=== PATIENT | female | born 1985 | race Caucasian/White ===

== ENCOUNTER 2018-08-04 10:43 | Inpatient (IN) | payer BC ==
[~2018-08-04] VITALS: Ht 162.6 cm; Wt 86.2 kg
[~2018-08-04 10:43] MED LIST: ALL DAY ALLERGY10 M1 PO; TRAZODONE HCL100 MG PO
[2018-08-07] MEDS ORDERED: XANAX0.5 MG PO (14:27)
--- NOTE | 2018-08-15 14:32 | NUR ---
PT RESTING CALMLY WITH FAMILY AT BS. OSIEL SHOWS APPROPRIATE CONCERN. PT REQUESTED PRAYER. WILL FOLLOW NEEDED
--- NOTE | 2018-08-15 15:35 | NUR ---
08/15/18 1535 Erika Torres 1525 PATIENT ARRIVES TO PACU AWAKE, BUT DOES NOT FOLLOW COMMANDS. RESP EVEN AND UNLABORED, ORAL AIRWAY IN PLACE. MASK AT 10 LITERS. 1529 ORAL AIRWAY REMOVED BY PATIENT. 1530 PATIENT AWAKE, BUT CONFUSED, STARTING TO FOLLOW COMMANDS. NODS HEAD YES TO PAIN, AND YES TO NEEDING PAIN MEDS.
--- NOTE | 2018-08-15 17:00 | NUR ---
PT ARRIVED FROM PACU. PT REPORTS 5/10 PAIN. FOAM GUN OPERATOR CALLED TO BEDSIDE TO CONFIRM THAT MORPHINE IRRIGATION EQUIPMENT MECHANIC CAN BE STARTED. VITALS TAKEN. MORPHINE IRRIGATION EQUIPMENT MECHANIC STARTED (SEE MAR), DOSE CONFIRMED BY EDWIN PEREZ. EDUCATION DONE WITH PT. PT VERBALIZES UNDERSTANDING OF HOW TO USE IRRIGATION EQUIPMENT MECHANIC AND THAT ONLY SHE SHOULD PUSH THE IRRIGATION EQUIPMENT MECHANIC BUTTON. ASSESSMENT DONE. DRESSING C/D/I AT THIS TIME. PT REPORTING ITCHING. ORDER FOR NUBAIN PLACED AND GIVEN. CONTINIOUS PULSE OX PLACED.O2 SATURATION AT 100% ON ROOM AIR. FOAM GUN OPERATOR TO BEDSIDE AND STATES TO PLACE PT ON 1L O2 CONTINIOUSLY. PT ORIENTED TO ROOM AND DEMONSTRATES UNDERSTANDING OF CALL LIGHT. MOTHER AT BEDSIDE. CALL LIGHT AND IRRIGATION EQUIPMENT MECHANIC BUTTON WITHIN REACH.
--- NOTE | 2018-08-15 18:11 | NUR ---
VITALS AND ASSESSMENT DUE. THIS RN AT BEDSIDE. PT REPORTS 5/10 PAIN. PT ENCORUAGED TO USE CALL CENTER NURSE FOR PAIN MEDICATION. PT DEMONSTRATES UNDERSTANDING. VITALS TAKEN. ASSESSEMENT DONE. DRESSING C/D/I AT THIS TIME. MATTHEW DRAINING SERIOUS ANGUNIOUS DRAINAGE. PT REMAINS ON 1L O2 PER YARD OPERATOR ORDER, PULSE OX READS 100% ON 1L O2. SCD'S IN PLACE. PT TOLERATING SIPS OF WATER. PT DEMONSTRATES USE OF INCENTIVE SPIROMETER REACHING 1950. MOTHER AT BEDSIDE. CALL LIGTH WITHIN REACH. NO ADDITONAL REQUESTS OR COMPLAINTS AT THIS TIME.
--- NOTE | 2018-08-15 18:34 | NUR ---
PT POST OP DAY ZERO FOR BONNIE RESECTION AND OVARY REMOVAL. NUTRITION PROGRAM INSTRUCTOR IN PLACE FOR 5/10 PAIN THIS SHIFT. PT USING NUTRITION PROGRAM INSTRUCTOR APPROPRAITLY. POST OP VITALS WNL. PT ON 1L O2 PER LEAD RECOVERER ORDERS. CPOX IN PLACE. DRESSING C/D/I THIS SHIFT. MATTHEW DRAIN SHOWING SERIOUS ANGUNEOUS FLUID. OTERO CATHETER IN PLACE DRAINING CLEAR YELLOW URINE. FAMILY AT BEDSIDE. PT HAS YET TO USE CALL LIGHT.
--- NOTE | 2018-08-15 18:46 | NUR ---
MED REC COMPLETE
--- NOTE | 2018-08-15 18:50 | NUR ---
VITALS AND ASSESSMENT DUE. THIS RN TO BEDSIDE. PT REPORST 7/10 PAIN IN LOWER BACK AND ABDOMEN. PT ENCOURAGED TO USE LAP CUTTER, 10MG OF MORPHINE DELIVERED SO FAR. WARM BLANKET PLACED BEHIND PTS BACK. ASSESSMENT DONE. DRESSING C/D/I AT THIS TIME. MATTHEW DRAIN SHOWS SMALL AMOUNT OF SERIOUSANGUNOUS DRAINAGE. VITALS TAKEN. PT REPOSITIONED IN BED. PT DEMONSTRATES USE OF INCENTIVE SPIROMETER RACHING 1750. PT RESTING WITH EYES CLOSED, RR = 12 BPM. BED RAILS UP. CALL LIGHT WITHIN REACH. MOTHER AT BEDSIDE.
--- NOTE | 2018-08-15 19:10 | NUR ---
KORY HAND OFF REPORT, PT REPORTS "NUMBNESS" IN HER RIGHT ARM. ASSESSMENT DONE. PT TOUCHED AT VARIOUS SPOTS ON ARM, WHILE EYES WERE CLOSED. PT ABLE TO IDENTIFY ALL PLACES TOUCHED. PT ENCOURATED TO MOVE ARM. MOVEMENT AND STRENGTH, WNL. RN PERITONEAL DIALYSIS CONSULTED TO SEE IF MORPHINE SPINAL AND SOLID WASTE LANDFILL TECHNICIAN COULD CAUSE EXTREMITY NUMBNESS. RN PERITONEAL DIALYSIS STATES TO CONTINUE TO MONITER. NO NEW ORERS AT THIS TIME. HAND OFF REPORT GIVEN TO EDWIN COLON.
--- NOTE | 2018-08-15 19:25 | NUR ---
RECIEVED BEDSIDE REPORT FROM REED PINEDA. PATIENT LAYING IN BED WITH FAMILY AT BEDSIDE. PATIENT REPORTS FEELING "SORE", DENIES WANTING PRN PAIN MEDICATION AT THIS TIME. SCDs IN PLACE. OTERO CATHETER. 1L VIA NC, CPOX, WNL. PATIENT REPORTS NUMBNESS IN RIGHT ARM. IV FLUIDS INFUSING PER JUL ORDER. COMPANY TRUCK DRIVER PUMP BUTTON IN REACH. DRESSING ON ABD IS CDI, NO NEW DRAINAGE NOTED.
--- NOTE | 2018-08-15 20:02 | NUR ---
ROUNDED ON PATIENT FOR POST OP VITALS. PATIENT REPORTS "8/10" PAIN IN BACK, PATIENT DENIES PRN PAIN MEDICATION AT THIS TIME, PT STATES THEY JUST PUSHED THEIR PROGRAM DIRECTOR PUMP. PATIENT REPORTS NUMBNESS IN RIGHT ARM, ASSESSED SENSATION OF RIGHT ARM, PATIENT REPORTS FEELING COOL SENSATION FROM ALCOHOL SWAP AND PALPATION ON RIGHT ARM WITH PATIENT EYES CLOSED. PATIENT REPORTS SLIGHT TINGLING IN BLE. PATIENT REPORTS "WET" SENSATION AROUND BUTTOCKS, CHECKED PATIENT TO HAVE DRY LINENS. DRESSING ON ABD IN CDI, NO NEW DRAINAGE PRESENT. 1L VIA NC, CPOX, WNL. CALL LIGHT WITHIN REACH. NO MORE NEEDS AT THIS TIME.
--- NOTE | 2018-08-15 21:46 | NUR ---
ASSESSMENT COMPLETE, REFER TO ASSESSMENT. MEDICATION ADMINSTERED PER MAR ORDER. PATIENT REPORTS HAVING NAUSEA THAT COMES AND GOES. COOL CLOTH PROVIDED FOR HEAD AND NECK. PATIENT REPORTS NUMBNESS IN RIGHT ARM, PT STATES NUMBESS IS STARTING TO GO AWAY. PT REPORTS TINGLING IN LEFT ARM. DRESSING ON ABD IS CDI, NO NEW DRAINAGE NOTED. PATIENT DENIES NUMBNESS AND TINGLING IN EXTREMITIES. MATTHEW DRAIN EMPTIED. INCENTIVE SPIROMETER AT BEDSIDE. SCDS IN PLACE. PATIENT REPORTS "5/10" PAIN IN BACK AND ABD, PATIENT DENIES WANTING PRN PAIN MEDICATION AND STATES PATIENT IS USING STEAM SERVICE INSPECTOR. STEAM SERVICE INSPECTOR BOTTOM WITHIN REACH OF PATIENT. IV FLUIDS INFUSING PER MAR ORDER. PATIENT DENIES SOB OR DIFFICULTY BREATHING. PATIENT IS ALERT AND ORIENTED, BUT STATES FEELING SLIGHTLY DROWSY. CALL LIGHT WITHIN REACH. NO MORE NEEDS AT THIS TIME.
--- NOTE | 2018-08-15 22:30 | NUR ---
PATIENT REPORTED NAUSEA. PRN NAUSEA MEDICATION PROVIDED PER JUL ORDER. COOL CLOTHS ON FOREHEAD AND EMESIS BAG PROVIDED. CALL LIGHT WITHIN REACH. NO MORE NEEDS AT THIS TIME.
--- NOTE | 2018-08-15 22:44 | NUR ---
ROUNDED ON PATIENT LAYING AWAKE IN BED. NEW SWATCH FOLDER SYRINGE PLACED IN SWATCH FOLDER PUMP DUE TO NOTIFICATION FROM SWATCH FOLDER PUMP THAT SWATCH FOLDER SYRINGE NEEDS TO BE REPLACED. SWATCH FOLDER SYRINGE WITH PAIN MEDICATION PER JUL ORDER PLACED IN SWATCH FOLDER PUMP AND DOUBLE VERIFIED WITH SECOND RN. RR IS 18. PATIENT REPORTS PAIN IN BACK AND ABD IS A "4/10". PATIENT ALERT AND ORIENTED. PATIENT DENIES NAUSEA. CALL LIGHT WITHIN REACH. NO MORE NEEDS AT THIS TIME.
--- NOTE | 2018-08-16 01:06 | NUR ---
rounded on patient resting in bed awake watching tv. patient rates pain as a "4/10", denies wanting prn pain medication. cpox, wnl. call light within reach. no more needs at this time.
--- NOTE | 2018-08-16 01:53 | NUR ---
ASSESSSMENT COMPLETE. PATIENT REPOSTS TINGLING IN ALL EXTREMITIES, PATIENT REPORTS NUMBNESS IN RIGHT ARM IS STARTING TO "GO AWAY". COOL BILATERAL EXTREMITIES, CAPILLARY REFILL LESS THAN 2 SECONDS. DRESSING ON ABDOMEN IS CDI, NO NEW DRAINAGE. MATTHEW DRAIN DRAINING, SEROSANGUANOUS FLUID, MATTHEW DRAIN EMPTIED. 1 L VIA NC, CPOX, WNL. PATIENT ALERT AND ORIENTED. RR IS 16. PATIENT REPORTS PAIN IS A "2/10", PATIENT DENIES WANTING PRN PAIN MEDICATION. SCDS IN PLACE. WARM BLANKET PROVIDED PER PATIENT REQUEST. PATIENT DENIES NAUSEA. PT DENIES CHEST PAIN, SOB OR DIFFICULTY BREATHING. CALL LIGHT WITHIN REACH. NO MORE NEEDS AT THIS TIME.
--- NOTE | 2018-08-16 05:21 | NUR ---
ASSESSMENT COMPLETE, REFER TO ASSESSMENT. RR: 18. PT ALERT AND ORIENTED. PT REPORTS PAIN IN ABDOMEN A "6/10" AND DESCRIBES PAIN "CRAMPING" AND "ACHY", PRN PAIN MEDICATION ADMINISTERED PER MAR ORDER. PATIENT STATES FLASHER ADJUSTER HAS BEEN HELPING. 1L VIA NC, CPOX WNL, NO SIGNS OF DISTRESS. PATIENT DENIES CHEST PAIN, SOB, OR DIFFICULTY BREATHING. PATIENT DENIES NAUSEA. PATIENT DENIES HAVING NUMBNESS AND TINGLING IN EXTREMITIES. PT REPORTS INCREASE IN PAIN WHEN PATIENT TAKES DEEP BREATHS AND USES INCENTIVE SPIROMETER, EDUCATION PROVIDED TO PATIENT TO BRACE ABD WITH PILLOW TO HELP WITH THIS, PATIENT EXPRESSED UNDERSTANDING. DRESSING ON ABD IS CDI, NO NEW DRAINAGE NOTED. MATTHEW DRAIN EMPTIED. WARM BLANKET PROVIDED. CALL LIGHT WITHIN REACH. NO MORE NEEDS AT THIS TIME.
--- NOTE | 2018-08-16 06:09 | NUR ---
PATIENT SLEPT ON AND OFF THROUGHOUT THE NIGHT. MATTHEW DRAIN, DRAINING WNL. SCDS. CPOX, WNL. 1L VIA NC, NO SIGNS OF DISTRESS. GERENTOLOGICAL PHYSIOTHERAPIST PUMP. PRN PAIN MEDICATION ADMINISTERED PER JUL ORDER. IV FLUIDS INFUSING PER JUL ORDER. INCENTIVE SPIROMETER AT BEDSIDE. DRESSING ON ABDOMEN IS CDI, NO NEW DRAINAGE. X1 PRN NAUSEA MEDICATION, NO COMPLAINTS OF NAUSEA SINCE. USES CALL LIGHT APPROPRIATELY. OTERO CATHETER. CLEAR LIQUID DIET. PATIENT REPORTS SENSATION IN EXTREMITIES AND DENIES NUMBNESS AND TINGLING.
--- NOTE | 2018-08-16 06:39 | NUR ---
ROUNDED ON PATIENT AWAKE WITH VISITOR AT BEDSIDE. PATIENT REPORTS "2/10" PAIN IN ABD WITH NO MOVEMENT. PATIENT REPORTS THAT PT'S STOMACH IS GROWLING, JELLO PROVIDED. CALL LIGHT WITHIN REACH. NO MORE NEEDS AT THIS TIME.
--- NOTE | 2018-08-16 07:22 | NUR ---
RECIEVED REPORT ON PT. SHE IS AWAKE WATCHING TV, NO NAUSEA AFTER EATING JELLO. REPORTS "GURGLING" IN STOMACH. MIDLINE DRSG CDI, MATTHEW PATENT WITH SCANT AMOUNT RED DRAINAGE. OTERO PATENT WITH LIGHT YELLOW URINE. REPORTS GOOD PAIN CONTROL. ENCOURAGED PT TO USE IS WHEN AWAKE. CALL LIGHT IN EASY REACH.
--- NOTE | 2018-08-16 09:43 | NUR ---
DRANK CUP OF BROTH OFF BREAKFAST TRAY, CURRENTLY SIPPING TEA, STOMACHE STILL "GURGLING". STATES SHE HAS PASSED TRACY, BEGINNING TO HAVE MORE ITCHING. WILL DISCUSS WITH DR AMATO. PT IN GOOD SPIRITS, MOTHER SITTING AT BEDSIDE VISITING.
--- NOTE | 2018-08-16 10:13 | NUR ---
SPOKE WITH DR LM ISSA; C/O ITCHING COMING BACK. RECIEVED ORDER TO GIVE BENEDRYL 12.5MG PO Q6P, TRYING TO AVOID OVERSEDATION. ENCOURAGING PT TO GET UP OOB. AGREES SHE WILL TRY FOR LUNCH.
--- NOTE | 2018-08-16 11:30 | NUR ---
PT PLANS ON RETURNING TO HER HOME WITH HER FAMILY. STATES SHE IS PLANNING ON RETURNING TO WORK ON 08/28/18
--- NOTE | 2018-08-16 11:45 | NUR ---
ONE PERSON ASSIST TO SIT UP ON SIDE OF BED, ORAL CARE DONE, STOOD USING PILLOW TO SPLINT ABD AND TOOK 5 STEPS TO RECLINER, POSITIONED FOR COMFORT. STATES SHE IS COMFORTABLE. CALL LIGHT IN EASY REACH. MOM SITTING AT BEDSIDE.
--- NOTE | 2018-08-16 13:00 | NUR ---
ONE PERSON ASSIST BACK TO BED, TOLERATED VERY WELL, ENCOURAGED TO DEEP BREATHE AND USE IS WHILE AWAKE, ABD DRSG IS CDI, MATTHEW SECURE. OTERO WITH LIGHT YELLOW URINE, SECURE.
--- NOTE | 2018-08-16 14:25 | NUR ---
PT RESTING IN BED, FAMILY AT BS. PT STATED THAT PAIN IS A 4-SHE FELT MANAGEABLE NOW. PT RATHER QUIET, EXTENDED A BLESSING, WILL FOLLOW NEEDED
--- NOTE | 2018-08-16 16:27 | NUR ---
PT ASKING FOR SOMETHING TO HELP WITH BACK PAIN, REPOSITIONED AND WARM PACK TO AREA WITH LITTLE RELIEF, TORADOL 30MG IV GIVEN.
--- NOTE | 2018-08-16 18:16 | NUR ---
PT HAD A GOOD DAY, UP TO RECLINER WITH ONE PERSON ASSIST, USING INCENTIVE SPIROMETER ALL DAY, ROOM AIR NOW, GOOD PAIN CONTROL WITH POULTRY HELPER, NO NAUSEA, HUNGRY. TORADOL WAS GIVEN WITH GOOD RELIEF OF BACK PAIN. OTERO WITH GOOD OUTPUT SECURE.LOTS OF FAMILY VISITING. MEPELEX DRSG CDI TO MIDLINE. MATTHEW SECURE.
--- NOTE | 2018-08-16 19:00 | NUR ---
CHARGE ROUNDING DONE. PATIENT RESTING IN BED. FAMILY IN ROOM. DENY CONCERNS AT THIS TIME.
--- NOTE | 2018-08-16 19:20 | NUR ---
RECEIVED REPORT FROM EDWIN CALDERÓN. pt EXPRESSED FRUSTRATION ABOUT BEING LEFT ALONE "FOR SO LONG". EDUCATED ON USING THE CALL LIGHT. FAMILY AT BEDSIDE. pt REPORTED FEELING ANXIOUS. MORPHINE SCALEHOUSE ATTENDANT CLEARED, INPUT IN COMPUTER. pt REPORTED ITCHING, EDWIN CALDERÓN ADMINISTERED BENADRYL. CALL LIGHT WITHIN REACH.
--- NOTE | 2018-08-16 21:40 | NUR ---
IN ROOM MULTIPLE TIMES. NEW IV FLUIDS HUNG. PREBOARDER CARTRIDGE CHANGED, VERIFIED WITH EDWIN WEST. MEDICATIONS GIVEN. COOL WASH CLOTHS PROVIDED TO HELP WITH ITCHING. FAMILY AT BEDSIDE. pt REQUESTED PRN ANXIETY MED (SEE MAR). IV HAD RED AREA NEAR INSERTION SITE. pt REPORTED THAT HAD BEEN THERE "A WHILE". IV FLUIDS STOPPED, REQUESTED CHARGE NURSE ASSESS FOR PLACEMENT OF NEW IV. pt REPORTED BEING "A HARD STICK, NO ONE GETS IT". ASSESSMENT DONE. CALL LIGHT WITHIN REACH.
--- NOTE | 2018-08-16 22:00 | NUR ---
CPOX BEEPING. ALARM CLEARED. VITALS DONE. MATTHEW DRAIN EMPTIED. pt REPORTED "STABBING PAIN" NEAR MATTHEW DRAIN, NOT TENDER WHEN PALPATED. ENCOURAGED TO AMBULATE OR SIT ON TOILET TO RELEIVE GAS PRESSURE. pt RELUCTANT AT THIS TIME. WILL CALL WHEN READY. FAMILY AT BEDSIDE. CALL LIGHT WITHIN REACH.
--- NOTE | 2018-08-16 23:40 | NUR ---
PATIENT COMPLAINING OF GAS PAIN. EDUCATION PROVIDED TO PATIENT ON IMPORTANCE OF AMBULATION FOR BOWEL MOTILITY. PATIENT ASSISTED UP TO STAND AT BEDSIDE. SHE FEELS WEAK BUT AGREES TO AMULATE IN HALLWAY. FAMILY ASSISTED PATIENT TO MAKE SMALL LAP AROUND BACK HALLWAY. PATIENT APPEARS SLOW AND STEADY. LINENS CHANGED ON PATIENT'S BED. PATIENT INTO THE BATHROOM, NO GAS BUT DID HAVE SMALL AMOUNT OF LOOSE STOOL. PATIENT REPORTS NOT FEELING THOUGH SHE WOULD HAVE A BM, STATING "IT JUST FELL OUT WHEN I WIPED". PATIENT NOT HAVING GAS CRAMPING PAIN AT THIS TIME. FEELS READY FOR BED. RETURNED TO BED AND POSITIONED FOR COMFORT. PATIENT REPORTS SORENESS IN HER NECK. WARM PACK PROVIDED. FAMILY REMAINS AT BEDSIDE.
--- NOTE | 2018-08-17 00:40 | NUR ---
CALL LIGHT ON. pt PASSED GAS AND LIQUID STOOL. LINENS CHANGED. pt UP TO TOILET AND BACK TO BED. FAMILY AT BEDSIDE. CALL LIGHT WITHIN REACH. NO FURTHER REQUESTS AT THIS TIME.
--- NOTE | 2018-08-17 03:01 | NUR ---
ROUNDED ON pt. RESTING WITH EYES CLOSED, RESPIRATIONS REGULAR. O2 SAT 92%. CALL LIGHT WITHIN REACH.
--- NOTE | 2018-08-17 05:16 | NUR ---
ROUNDED ON pt. RESTING WITH EYES CLOSED, RESPIRATIONS REGULAR, O2 SAT 94%. CALL LIGHT WITHIN REACH.
--- NOTE | 2018-08-17 05:18 | NUR ---
pt RESTED MOST OF SHIFT. ANXIOUS AT BEGINNING OF SHIFT. COMPLAINED OF GAS PAIN RESOLVED WITH AMBULATION. BM X1. PAIN CONTROLLED WITH MORPHINE FUNCTIONAL MENTAL DISABILITY TEACHER. OTERO CATH. VOIDING QS. NEW IV, IVF. TOLERATING CLEAR LIQUID DIET. MATTHEW DRAIN. MEPILEX TO MIDLINE INCISION CDI. USES CALL LIGHT APPROPRIATELY.
--- NOTE | 2018-08-17 06:39 | NUR ---
pt's INFORMED THIS RN THE PATIENT WAS IN PAIN. PRN MED GIVEN (SEE MAR). ASSESSMENT DONE. VITALS, I&O RECORDED. DRAIN EMPTIED. MOVED TO CHAIR. WARM BLANKETS PROVIDED. MOTHER AT BEDSIDE. CALL LIGHT WITHIN REACH.
--- NOTE | 2018-08-17 08:17 | NUR ---
PT UP TO RECLINER FOR BREAKFAST, CONT. TO TOLERATE CLEAR LIQUIDS WELL. PASSING FLATUS, REPORTS LOOSE STOOL DURING NIGHT.
--- NOTE | 2018-08-17 09:30 | NUR ---
SBA TO AMBULATE AROUND 1/2 LOOP AND BACK TO ROOM, INTO BATHROOM FOR SPONGE BATH, SMALL LIQUID GREENISH BROWN STOOL. PASSING FLATUS AND OCCASIONAL CRAMPING. DENIES NAUSEA. SITTING UP IN RECLINER WITH CUP OF TEA AND VISITING WITH FAMILY. OTERO SECURE WITH LIGHT YELLOW URINE, MATTHEW IS SECURE WITH SMALL AMOUNT RED SERROUS FLUID. ABD DRSG REMAINS CDI. CALL LIGHT IN EASY REACH AND ENCOURAGED PT IS RELUCTANT TO CALL FOR HELP.
--- NOTE | 2018-08-17 10:02 | NUR ---
PT CALLED AND STATES SHE DOES CONT. TO HAVE ITCHING MOSTLY FACE AND AROUND EYES. BENEDRYL 12.5MG PO GIVEN. WILL SPEAK TO DR AMATO.
--- NOTE | 2018-08-17 10:18 | NUR ---
SPOKE WITH DR AMATO ABOUT ITCHING AND HE STATES HE MAY DC COUNTER INTELLIGENCE AGENT AND BEGIN ORAL PAIN MEDICATION TODAY.
--- NOTE | 2018-08-17 13:00 | NUR ---
PT SAT UP THRU LUNCH AND AGAIN WENT FOR WALK AROUND NURSES STATION, TOLERATED WELL. ASSISTED TO BED WITH WARM BLANKET FOR A NAP. REPORT PAIN 4/10 WELL CONTROLLED WITH NURSE CLINICAL.NO NAUSEA. ACTIVE BT'S. GOOD URINE OUTPUT. IN ROOM. CALL LIGHT IN EASY REACH.
--- NOTE | 2018-08-17 16:35 | NUR ---
NOTED SOME SWELLING AT IV SITE IN RFA. IV RESTARTED BY ER-NURSE RANDA INTO RAC. TAPED SECURELY. PT TOLERATED WELL.
--- NOTE | 2018-08-17 17:11 | NUR ---
DR AMATO IN TO SEE PT. NEW ORDERS NOTED.
--- NOTE | 2018-08-17 18:00 | NUR ---
PATIENT SITTING UP IN BED. SISTER IN ROOM. PATIENT TAKING DINNER. VITAL SIGNS AND I&O DONE. CALL LIGHT WITHIN REACH. NO OTHER NEEDS AT THIS TIME
--- NOTE | 2018-08-17 18:34 | NUR ---
PT ATE BOWL OF POTATOES AND GRAVY AND TOLERATED WELL. NORCO GIVEN FOR PAIN 07/30. MONUMENT STONECUTTER DISCONTINUED. OTERO CATHETER DC'D AT THIS TIME WELL. PT IS IN GOOD SPIRITS VISITING WITH FRIENDS.
--- NOTE | 2018-08-17 19:55 | NUR ---
REPORT RECEIVED, PT RESTING IN BED, AOX4, FAMILY RESTING AT BEDSIDE, IV FLUIDS INFUSING PER EMAR WNL, DRESSING VISUALIZED, C/D/I, MATTHEW DRAIN NOTED, SMALL AMOUNT OF SEROSANGUINEOUS DRAINAGE, PT DENIES ANY NEEDS AT THIS TIME, CALL LIGHT WITHIN REACH, FALL PRECAUTIONS IN PLACE.
--- NOTE | 2018-08-17 21:27 | NUR ---
CHARGE NURSE ROUNDING NOTE:, WATCHING TV, NO REQUESTS. CALL LIGHT AND FLUIDS AT BEDSIDE
--- NOTE | 2018-08-17 21:32 | NUR ---
VITALS AND I&OS DONE AND CHARTED. HELPED PT TO THE BATHROOM AND BACK TO BED. CHANGED HER DAMIEN DUE TO A SMEAR OF BM ON IT. BEDSIDE TABLE AND CALL LIGHT IN REACH. PT ASKED IF SHE COULD HAVE HER PAIN PILLS? I INFORMED HER RN LYLA.
--- NOTE | 2018-08-17 21:44 | NUR ---
IN ROOM TO ADMIN EVENING MEDS, PT AOX4, PT C/O "FEELING ANTSY", PT ALSO STATES THAT HER PAIN IS CURRENTLY A 3/10, PRN ANXIETY MEDICATION GIVEN PER EMAR, PT DENIES FURTHER NEEDS AT THIS TIME, ASSESSMENT COMPLETE, LS CLEAR, BT ACTIVE, PT'S INCISIONS C/D/I, MATTHEW DRAIN DRAINING WNL, SEROSANGUINEOUS DRAINAGE NOTED IN PT'S MATTHEW DRAIN. NO NEEDS AT THIS TIME, FAMILY AT BEDSIDE, CALL LIGHT WITHIN REACH, FALL PRECAUTIONS IN PLACE.
--- NOTE | 2018-08-17 22:38 | NUR ---
PT C/O 10/30 PAIN RELATED TO ABDOMEN, PT REQUESTING PRN PAIN MEDICATION, PRN PAIN MEDICATION GIVEN PER EMAR, PT TOLERATED WELL, NO FURTHER REQUESTS AT THIS TIME, IV FLUIDS INFUSING PER EMAR WNL, CALL LIGHT WITHIN REACH, FALL PRECAUTIONS IN PLACE. FAMILY AT BEDSIDE.
--- NOTE | 2018-08-17 23:01 | NUR ---
HELPED PT TO THE BATHROOM AND BACK TO BED. BEDSIDE TABLE AND CALL LIGHT IN REACH. PT NEEDS NOTHING MORE AT THIS TIME.
--- NOTE | 2018-08-17 23:43 | NUR ---
PT RESTING IN BED, NO REQUESTS AT THIS TIME, CALL LIGHT WITHIN REACH, IV FLUIDS INFUSING PER EMAR WNL, CALL LIGHT WITHIN REACH. FAMILY REMAINS AT BEDSIDE.
--- NOTE | 2018-08-18 03:03 | NUR ---
PT C/O 11/29 PAIN IN ABDOMEN, PT GIVEN PRN PAIN MEDICATION PER EMAR, PT TOLERATED WELL, PT DENIES FURTHER NEEDS AT THIS TIME, CALL LIGHT WITHIN REACH, FALL PRECAUTIONS IN PLACE.
--- NOTE | 2018-08-18 04:50 | NUR ---
PT RESTING IN BED, EYES CLOSED, BREATHS EVEN, UNLABORED, NO REQUESTS AT THIS TIME, CALL LIGHT WITHIN REACH, IV FLUIDS INFUSING PER EMAR WNL.
--- NOTE | 2018-08-18 05:12 | NUR ---
PT AOX4, ANXIOUS AT TIMES BUT OVERALL APPROPRIATE, PT HAS RECEIVED PRN PAIN MEDICATION X2 THIS SHIFT, PT HAD ASKED AT BEGINNING OF SHIFT TO BE WOKEN UP Q4 FOR PRN PAIN MEDICATION, PT HAS BEEN ABLE TO SLEEP THIS SHIFT, IV FLUIDS INFUSING PER EMAR WNL, SCD'S ON, CALLS APPROPRIATELY, ON RA, VSS, ABDOMINAL INCISION C/D/I, MATTHEW DRAIN DRAINING WNL. 1 PERSON SBA
--- NOTE | 2018-08-18 06:15 | NUR ---
PT GIVEN PRN PAIN MEDICATION PER PT'S REQUEST PER EMAR, NO FURTHER REQUESTS AT THIS TIME, CALL LIGHT WITHIN REACH, IV FLUIDS INFUSING PER EMAR WNL, SCD'S ON.
--- NOTE | 2018-08-18 07:15 | NUR ---
BEDSIDE HANDOFF REPORT RECEIVED FROM CONCRETE PUDDLER RN. PT SITTING IN CHAIR, ASSISTED TO BATHROOM AND THEN TO BED. PT RATING PAIN 3/10. PT DENIES OTHER NEEDS AT THIS TIME.
--- NOTE | 2018-08-18 08:35 | NUR ---
PT RESTING IN BED. PT ON ROOM AIR, LUNG SOUNDS CLEAR. BOWEL TONES ACTIVE, DENIES NAUSEA, CONTINUES TO REPORT INCONTINENCE OF BOWEL AT TIMES, TOLERATING FULL LIQUID DIET. PT WITH MIDLINE MEPILEX AND OPSITE, CDI, MATTHEW DRAIN TO LLQ, COVERED WITH MEPILEX, CDI. CMS INTACT, WITHOUT EDEMA, SCDS TO LOWER LEGS. PT ASSISTED TO BATHROOM AND BACK TO BED, VOIDING QS. IV FLUIDS INFUSING D5LR AT 85 TO RAC IV.PT RATING PAIN 4/10 GIVEN 2 TAB NORCO. PT COMPLAINT OF ITCHING, PROVIDED WITH 12.5 MG BENADRYL. PT DENIES OTHER NEEDS AT THIS TIME. DISCUSSED PLAN OF CARE FOR THE DAY.
--- NOTE | 2018-08-18 09:12 | NUR ---
PATIENT RESTING IN BED. VITAL SIGNS AND I&O DONE. CALL LIGHT WITHIN REACH. NO OTHER NEEDS AT THIS TIME
--- NOTE | 2018-08-18 10:21 | NUR ---
HELPED PATIENT DO A BED BATH. AND SHAMPOOED AND COMBED HER HAIR. CHANGED HER BED LINENS. PATIENT AND I DID ONE LAP AROUND MED SURG.
--- NOTE | 2018-08-18 11:04 | NUR ---
PT ASSISTED TO BATHROOM AND BACK TO BED. PT COMPLAINT OF PAIN, RECENTLY RECEIVED MOTRIN, PLAN FOR NORCO WHEN AVAIALBLE. PT DENIES OTHER NEEDS AT THIS TIME.
--- NOTE | 2018-08-18 11:20 | NUR ---
PATIENT CALLS TO GET A WARM BLANKET. PATIEN RESTING IN BED. FAMILY IN ROOM. WARM BLANKET PROVIDED. CALL LIGHT WITHIN REACH. NO OTHER NEEDS AT THIS TIME
--- NOTE | 2018-08-18 13:03 | NUR ---
PATIENT RESTING IN BED. MOM IN ROOM. VITAL SIGNS AND I&O DONE. ICE WATER GIVEN. CALL LIGHT WITHIN REACH. NO OTHER NEEDS AT THIS TIME
--- NOTE | 2018-08-18 14:45 | NUR ---
PT REQUESTING TO USE BATHROOM, SBA. PT ASSISTED TO CHAIR. NO ACUTE CHANGES. MIDLINE INCISION DRESSING CDI, MATTHEW DRAIN PRESENT. PT DENIES OTHER NEEDS AT THIS TIME.
--- NOTE | 2018-08-18 15:45 | NUR ---
PT SITTING IN CHAIR. PT DENIES NEEDS AT THIS TIME.
--- NOTE | 2018-08-18 17:25 | NUR ---
PT SITTING IN CHAIR. UPDATED PT ON NEED FOR STOOL SAMPLE, EDUCATED ON C-DIFF AND CONTACT PRECAUTIONS. PT REQUESTING PAIN MEDICATION RATING PAIN 5/10 TO ABD. GIVEN 2 TABS NORCO. PT SALINE LOCKED PER ORDER. DISCUSSED SHOWER AFTER DINNER. PT DENIES OTHER NEEDS AT THIS TIME.
--- NOTE | 2018-08-18 17:30 | NUR ---
PATIENT SITTING UP IN CHAIR. FAMILY IN ROOM. VITAL SIGNS AND I&O DONE. PATIENT COMPLAINS ABOUT PAIN. RN NOTIFIED. CALL LIGHT WITHIN REACH. NO OTHER NEEDS AT THIS TIME
--- NOTE | 2018-08-18 17:40 | NUR ---
PT ON ROOM AIR, LUNG SOUNDS CLEAR. PT ADVANCED TO REGULAR DIET, DENIES NAUSEA. PT WITH LOOSE BM, C-DIFF STOOL SAMPLE NEEDED, IMODIUM STARTED. PAIN WELL CONTROLLED WITH NORCO 2 TAB AND MOTRIN. SALINE LOCKED. WALKED IN ALAS SEVERAL TIMES. MATTHEW DRAIN TO LLQ, MIDLINE INCISION DRESING CDI. SBA TO AMBULATE. VOIDING QS.
--- NOTE | 2018-08-18 19:29 | NUR ---
REPORT RECEIVED, PT RESTING IN BED, IV SL, SCD'S ON, PT HAS NOT YET HAD A BM, PT C/O A SORE BACK, HOT PACK GIVEN PER PT'S REQUEST, PT DENIES SIGNIFICANT PAIN, NO NEEDS AT THIS TIME, CALL LIGHT WITHIN REACH. FALL PRECAUTIONS IN PLACE. FAMILY AT BEDSIDE.
--- NOTE | 2018-08-18 20:12 | NUR ---
PATIENT CARE MANAGER ROUNDING NOTE. PT UP TO BATHROOM AND TO CHAIR INDEPENDENTLY. PT STATES THAT HER PAIN IS ELEVATED AT THIS TIME. MASON HELPER WILL LET PRIMARY RN KNOW. MATTHEW DRAIN EMPTIED PER PT REQUEST. 20 ML OF SEROSANG DRAINAGE EMPTIED. PT TOLERATED WELL. PT REQUESTS TO WALK IN HALLS, PT'S STATES THAT HE FEELS COMFORTABLE WALKING WITH PT. PT AND HER DENY FURTHER NEEDS AT THIS TIME. CALL LIGHT WITHIN REACH.
--- NOTE | 2018-08-18 20:46 | NUR ---
PT WALKED IN HALLS WITH ASSISTANCE FROM FAMILY MEMBER, PT TOLERATED WELL, PT BACK IN BED NOW, C/O 6/ PAIN RELATED TO ABDOMEN, PT GIVEN PRN PAIN MEDICATION PER EMAR, HOT PACK PROVIDED FOR PT'S BACK WELL. ASSESSMENT COMPLETE, PT'S DRESSINGS C/D/I, MATTHEW DRAIN DRAINING SEROSANGUINEOUS DRAINAGE WNL, SMALL AMOUNT, CMS INTACT, BT HYPOACTIVE, PT DENIES BM, DENIES ANY REQUESTS AT THIS TIME, CALL LIGHT WITHIN REACH, FALL PRECAUTIONS IN PLACE.
--- NOTE | 2018-08-18 23:49 | NUR ---
PT RESTING IN BED, EYES CLOSED, BREATHS EVEN, UNLABORED, NO REQUESTS AT THIS TIME, CALL LIGHT WITHIN REACH, FALL PRECAUTIONS IN PLACE.
--- NOTE | 2018-08-19 02:12 | NUR ---
CALL LIGHT ANSWERED, PT NOTED TO BE INCONTINENT OF SMALL SMEAR AMOUNT OF STOOL, THIS RN ATTEMPTED TO GATHER A SAMPLE OF THE STOOL BUT WAS UNABLE DUE TO THE SMALL AMOUNT, PT STATES THAT SHE HAD NO SENSATION OF VOIDING AND WAS SLEEPING, NO FOUL SMELL NOTED OF THE BM, BROWN IN COLOR, PT PLACED IN ATTENDS, BEDDING CHANGED, PT DENIES ANY PAIN AT THIS TIME STATING "MY STOMACH FEELS GOOD", EDUCATION PROVIDED REGARDING PAIN MANAGMENT, NO REQUESTS AT THIS TIME, CALL LIGHT WITHIN REACH. SCD'S ON.
--- NOTE | 2018-08-19 03:15 | NUR ---
PT C/O 08/30 PAIN RELATED TO ABDOMEN, PT GIVEN PRN PAIN MEDICATION PER EMAR, NO FURTHER REQUESTS AT THIS TIME, SCD'S ON, CALL LIGHT WITHIN REACH.
--- NOTE | 2018-08-19 04:38 | NUR ---
PT AOX4 THIS SHIFT, APPROPRIATE, 1 PERSON SBA, PT RECEIVED PRN PAIN MEDICATION X3 THIS SHIFT, PT'S PAIN HAS BEEN BETTER CONTROLLED THIS SHIFT PER PT, PT DID HAVE INCONTINENT EPISODE OF VERY SMALL SMEAR OF STOOL WHILE PT WAS SLEEPING, SMEAR WAS TOO SMALL FOR SAMPLE, VSS, NO C/O NAUSEA OR EMESIS, CALLS APPROPRIATELY, INCISIONS C/D/I, MATTHEW DRAIN INTACT AND PATENT, SMALL AMOUNT OF SEROSANGUINEOUS DRAINAGE.
--- NOTE | 2018-08-19 07:42 | NUR ---
MORNING ASSESSMENT DONE. PATIENT UP TO CHAIR, DID NOT WANT CURTAIN OPEN, IS HOPING TO GO BACK TO SLEEP SHE WAS UP HAVING FREQUENT LOOSE BM. STOOL SAMPLE WENT TO LAB. ABD PAIN IS 6/10 AND ONE PO NORCO GIVEN. MATTHEW DRAIN STRIPPED AND EMPTIED FOR 10ML SEROSANGUIOUS FLUID. MEPILEX INTACT TO MIDLINE AND MATTHEW SITE AND ARE CDI. PATIENT CONTINUES TO REPORT NOT FEELING THE SENSATION OF HAVING TO BM, IS WEARING ATTENDS.
--- NOTE | 2018-08-19 09:27 | NUR ---
PATIENT UP TO CHAIR, VITALS ARE ALL WITHIN THE NORMAL RANGE. IMMODIUM GIVEN FOR LOOSE STOOL.
--- NOTE | 2018-08-19 10:11 | NUR ---
DR. AMATO IN TO SEE PATIENT. PATIENT UP TO AMBULATE IN HALLWAY.
--- NOTE | 2018-08-19 10:33 | OR ---
[facility] [address], [place] [address] Signed DATE OF OPERATION: 08/15/2018 SURGEON: Andres Amato MD PREOPERATIVE DIAGNOSES: 1. 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 2. History of extensive endometriosis, status post hysterectomy with left salpingo-oophorectomy. POSTOPERATIVE DIAGNOSES: 1. 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 2. History of extensive endometriosis, status post hysterectomy with left salpingo-oophorectomy. 3. Intramural endometrioma of mid rectum at 12 cm (bulky). 4. Neoplasm, right ovary consistent with "chocolate cyst". PROCEDURES: 1. Rigid proctoscopy. 2. Excision of right ovary with chocolate cyst and right partial salpingectomy. 3. Low anterior resection with colorectal anastomosis (side-to-end Reza type). 4. Mobilization of splenic flexure. RECYCLING TECH: Nurse, Heidi Bravo RN. ANESTHESIA: General endotracheal. Nilesh Cruz CRNA. DRAIN: 7 mm Anson. INDICATION: This 33-year-old white woman is a patient of Javy Maya. She has had several years of monthly rectal bleeding. She has undergone hysterectomy and left salpingo-oophorectomy for advanced endometriosis by Dr. Chandler in [place]. This was done in 2016. Clear evidence of extensive endometriosis was noted. Since that time, the patient continues to have monthly rectal bleeding. She has been evaluated by Dr. Vince Fallon, Dr. Garcia, senior patient account representative in the [facility] and possibly others. Electronically Signed By: ANDRES AMATO MD 08/19/18 1033 PATIENT NAME: NORTH LORENZO OPERATIVE REPORT DATE OF : 81 REPORT #: [id number] PHYSICIAN: ANDRES AMATO MD PCP: JOURDAN BOATENG PAC REPORT IS CONFIDENTIAL AND NOT TO BE RELEASED WITHOUT AUTHORIZATION [facility] [address], [place] [address] Signed She underwent colonoscopy by me where she was noted to have at approximately 12 cm from the anal verge, a mural abnormality highly suggestive of endometrioma. This was biopsied and tissue affirmed, that this did represent intramural mid to upper rectal endometrioma. She is admitted today to undergo low anterior resection for remedy of this problem as well as other indicated procedures as necessary. She understands as does her the risks of bleeding, infection, ureteral injury, failure to cure the problem, and other unforeseen complications and wishes to proceed. FINDINGS: Rigid proctoscopy confirmed the EndoMark tattoo dye that I had injected was at about 12 cm from the anal verge. In laparotomy, the dye was well delineated and in the mid to upper rectum. A bulky neoplasm was noted, which proved to be an intramural endometrioma. Extensive scarring was noted particularly in the right pelvic sidewall. Of great note, a bulky 6 cm ovarian mass that was doughy and firm and likely accounted for some of her right lower abdominal pain was noted. Upon dissection, this was found ultimately to be a chocolate cyst indistinguishable from newtok ovary itself. The remaining abdomen was normal. I saw no other evidence of active endometriosis, but she did have significant scarring anterior to the rectum and laterally particularly on the left and right side. The left ureter was well identified and unharmed. Right ureter was not identified. There was fibrosis and so forth in the right pelvic sidewall, care was taken to avoid iatrogenic injury to the right ureter, though admittedly it was not identified specifically. Splenic flexure mobilization was required to allow for tension-free anastomosis. A side-to-end coloproctostomy was accomplished in the technique of Juaquin and is completely tension free. Dissection was carried into a low anterior position with the sacral hollow freed from the posterior wall of the rectum. Mid rectal anastomosis is widely patent and without sign of leakage. DESCRIPTION OF PROCEDURE: The patient was brought to the operating room, given a general endotracheal anesthetic. She had undergone a full bowel prep including oral antibiotics. With legs supported by nursing staff, a rigid proctoscopy was undertaken allowing for suctioning of rectal and sigmoidal fluid from her bowel prep. Marcaine from the endoscopic EndoMark tattoo was noted at approximately 12 cm from the anal verge possibly a bit lower. Electronically Signed By: ANDRES AMATO MD 08/19/18 1033 PATIENT NAME: NORTH LORENZO OPERATIVE REPORT DATE OF : 81 REPORT #: [id number] PHYSICIAN: ANDRES AMATO MD PCP: JOURDAN BOATENG PAC REPORT IS CONFIDENTIAL AND NOT TO BE RELEASED WITHOUT AUTHORIZATION [address] [address] Signed A Chavez catheter was then placed and the abdomen was clipped and prepared with a chlorhexidine solution and draped sterilely. An incision was made inferior to the umbilicus extending through the thick abdominal wall pannus ultimately entering the abdomen without problem. Notably, a Pfannenstiel was present as well. Intraabdominal inspection showed no sign of ascites or carcinomatosis and no gross peritoneal finding of endometriomas. Noted immediately, however, was a bulky mass in the pelvis which was found to be the right ovary contiguous with infuse to the sigmoid and rectal portions of the colon. There was surgical absence of the uterus and no sign of left pelvic abnormality particularly. The EndoMark tattoo dye from endoscopy was well visualized and was somewhat widely distributed in the mesentery of the sigmoid. A Bookwalter retractor was attached to the table and small bowel was packed into the upper abdomen. Further examination showed the right ovarian mass to be doughy, large and indistinguishable from the ovary itself. It was obscuring most of the pelvis and therefore it needed to be excised first. Using electrocautery dissection, the peritoneum surrounding the attachments laterally and the pelvic wall were freed. A Gentry clamp was applied to the right salpinx and a window created on the pelvic sidewall. Ultimately, the right salpinx was secured with tonsil clamps, divided and ligated with 0 silk ties. With meticulous care, the ovary which was densely adherent to the pelvic peritoneum and the pelvic inlet was freed and vascular supply isolated, secured, ligated, and divided. This allowed for explantation of bulky mass. It was nearby, but not contiguous with the rectosigmoid as it turns out. Plans were then made for low anterior resection. The palpable portion of the upper rectum above the pelvic peritoneum did not have any bulky lesion. The white line of Toldt was incised with electrocautery in the sigmoid, freed from the lateral sidewall. The left ureter was identified and unharmed and its course well defined. The peritoneum laterally and anteriorly to the rectum was incised anteriorly. Dense fibrosis was noted from prior operative intervention. This was a difficult plane and was left in situ for the time being. Sigmoid mesentery was scored and application of tonsil clamps allowed for ligation of the sigmoidal blood supply. JOSSY stapling device was used to transect the distal descending colon. This allowed for better dissection posteriorly. Using electrocautery and blunt dissection, the sacral promontory area was more fully freed and the vascular supply to sigmoid including the lowest sigmoidal branches were ligated and divided. This allowed for dissection posteriorly allowing for palpation of a bulky mass within the mid rectum. No doubt this correlated to the endometrioma. Careful dissection laterally on the left and subsequently anteriorly and ultimately to the right was undertaken with special care to avoid any ureteral injury or other problem including Electronically Signed By: ANDRES AMATO MD 08/19/18 1033 PATIENT NAME: NORTH LORENZO OPERATIVE REPORT DATE OF : 81 REPORT #: [id number] PHYSICIAN: ANDRES AMATO MD PCP: JOURDAN BOATENG PAC REPORT IS CONFIDENTIAL AND NOT TO BE RELEASED WITHOUT AUTHORIZATION [facility] [address], [place] [address] Signed vaginal injury or bladder injury. Ultimately, familiar rectal fat was noted in the anterior aspect of the plane ultimately maintained and palpation showing the offending endometrioma to be fully isolated. The ultimate transection for the rectum was essentially the mid to low rectum. Isolating laparotomy packs were placed. Right angle bronchus clamp applied to the mid rectum. The specimen was transected with prostate scissors opened on the back table and found to have intramural endometrioma, marked scarring and so forth. There was no sign of ulceration of the mucosa itself at this time. Plans were then made for anastomosis. The remaining left colon could reach the pelvis, but not adequately enough and therefore splenic flexure mobilization was undertaken with blunt electrocautery dissection. By this point, the left colon could easily rest into the low portion of the pelvis without tension at all. A side-to-end coloproctoscopy was then undertaken in the technique of Juaquin. This was undertaken with a two layer technique with interrupted 3-0 silk suture. At conclusion, excellent viability of both proximal and distal segments was noted, wide patency to the anastomosis. There was no sign of enteric leakage. Upon opening the bowel loops, only small amount of liquid enteric contents was noted and a good bowel prep was clear. The mucosa that remains was completely normal. Gloves were changed for all personnel and contaminated instruments and irrigation was then undertaken with warm saline in the pelvis. Through a left lower quadrant incision of a stab type, a 7 mm flat Anson drain was placed in the sacral hollow. This was secured to skin with nylon suture. Irrigation was undertaken more fully in the abdomen. Normal bowel contents were returned to the actual anatomic configuration. The omentum placed over the abdominal contents. Midline fascia was reapproximated with running bidirectional #1 PDS suture. Subcutaneous tissue irrigated and skin closed with running subcuticular 3-0 Vicryl. Steri-Strips were applied. The drain was attached to bulb suction. The patient tolerated the procedure well. Blood loss was less than 50 mL in aggregate. Sponge, needle, and instrument counts reported as correct x3. Andres Amato MD Electronically Signed By: ANDRES AMATO MD 08/19/18 1033 PATIENT NAME: NORTH LORENZO OPERATIVE REPORT DATE OF : 81 REPORT #: [id number] PHYSICIAN: ANDRES AMATO MD PCP: JOURDAN BOATENG PAC REPORT IS CONFIDENTIAL AND NOT TO BE RELEASED WITHOUT AUTHORIZATION [facility] [address] [place] [address] Signed /KEMI /[id number] cc: Sukhi Kasper DO Daniel Adelman Andrew L Bower, MD Copies: CANDIS CHANDLER ANDREW L MD ~ Electronically Signed By: ANDRES AMATO MD 08/19/18 1033 PATIENT NAME: NORTH LORENZO OPERATIVE REPORT DATE OF : 81 REPORT #: [id number] PHYSICIAN: ANDRES AMATO MD PCP: JOURDAN BOATENG PAC REPORT IS CONFIDENTIAL AND NOT TO BE RELEASED WITHOUT AUTHORIZATION
--- NOTE | 2018-08-19 10:55 | NUR ---
MIDLINE ABDOMEN DRESSING OFF, STERI STRIPS INTACT TO LOWER ABDOMEN. MATTHEW REMOVED, SMALL LLQ INCISION OPEN TO AIR.
--- NOTE | 2018-08-19 12:03 | NUR ---
PATIENT UP TO CHAIR FOR LUNCH, BED LINENS CHANGED, PATIENT WOULD LIKE TO SHOWER AFTER LUNCH.
--- NOTE | 2018-08-19 13:18 | NUR ---
PATIENT GIVEN 1300 MEDICATIONS, UP TO SHOWER.
--- NOTE | 2018-08-19 14:55 | NUR ---
PATIENT SEEMS TO BE FEELING BETTER THIS AFTERNOON AFTER A SHOWER. PATIENT ENDORSES HAVING NEEDING TO HAVE A BM, WAS ABLE TO BE CONTINENT AND MAKE IT TO THE BATHROOM.
--- NOTE | 2018-08-19 17:44 | NUR ---
PATIENT HAS BEEN UP TO AMBULATE TODAY, HAD DRESSING AND MATTHEW REMOVED, UP TO SHOWER. PO IMMODIUM IS SCHEDULED AND BM'S HAVE SLOWED DOWN. PATIENT IS TOLERATING REGULAR DIET AND ORAL PAIN MEDICATIONS WELL. MID ABDOMEN INCISION IS INTACT WITH STERI STRIPS CDI, LLQ OLD MATTHEW DRAIN SITE HAS HAD SCANT DRAINAGE SINCE MATTHEW REMOVAL.
--- NOTE | 2018-08-19 19:05 | NUR ---
SHIFT REPORT RECEIVED. PATIENT UP IN THE BATHROOM. AT BEDSIDE. NO NEEDS AT THIS TIME. SOON AFTER THE PATIENT WAS SEEN AMBULATING IN THE HALLWAY, STEAY ON HER FEET.
--- NOTE | 2018-08-19 19:47 | NUR ---
PATIENT GOT 2 NORCO FOR 6/10 ABD PAIN.
--- NOTE | 2018-08-19 20:26 | NUR ---
PATIENT REQUEST HER SCHEDULED IMODIUM AT THIS TIME AND THAT WAS PROVIDED TO HER. SHE STATES "IT STARTS TO WEAR OFF AROUND 5 HOURS" AND REPORTS HAVING A LOOSE STOOL RECENTLY. PATIENT WAS PROVIDED WITH ELEONORA BLANCA BY YORDY PINEDA. FRESH ICE WATER PROVIDED. NO OTHER NEEDS AT THIS TIME. CALL LIGHT IN REACH. FAMILY AT BEDSIDE.
--- NOTE | 2018-08-19 21:45 | NUR ---
PATIENT PROVIDED WITH SCHEDULED SLEEP AIDE. PATIENT REPORTS BEING NERVOUS ABOUT HAVING A LOOSE BM IN THE BED AGAIN. DISCUSSED OPTIONS TO NOT TAKE SLEEP AIDE TO REDUCE CHANCE OF SLEEPING SO SOUNDLY. PATIENT DECLINED THIS BUT STATES "MAYBE I WON'T TAKE MY OTHER NAXIETY MEDICATION TONIGHT THAT I USUALLY TAKE TO SLEEP". TOGETHER THE PATIENT AND THIS RN AGREED TO THIS PLAN AND I ENCOURAGED THE PATIENT TO CALL IF SHE WAS UNABLE TO SLEEP. PATIENT REPORTS PAIN 5/10 AFTER RECEIVING 2 NORCO, PRN MOTRIN ADDED FOR PAIN CONTROL. PATIENT ALSO STATES SHE IS A LITTLE NAUSEOUS, PRN ZOFRAN PROVIDED. ABD IS MILDLY DISTENDED, MIDLINE INCISION WELL APPROXIMATED. OLD MATTHEW SITE NOT LEAKING. BOWEL SOUNDS HYPOACTIVE AT THIS TIME. NO OTHER CONCERNS PER THE PATIENT. FAMILY HAS GONE HOME. CALL LIGHT IN REACH.
--- NOTE | 2018-08-20 00:15 | NUR ---
patient provided with ice water per request. Patient states she has been sleeping but waking frequently. Denied any interventions. Call light in reach.
--- NOTE | 2018-08-20 03:00 | NUR ---
PATIENT APPEARS TO BE SLEEPING SOUNDLY. RR 18. CALL LIGHT IN REACH.
--- NOTE | 2018-08-20 06:11 | NUR ---
MORNING VS DONE. PATIENT APPEARED TO BE SLEEPING SOUNDLY WHEN RN ENTERED ROOM. WOKE EASILY TO VOICE. PATIENT DENIED NEED FOR PRN PAIN MEDS AT THIS TIME. NO NAUSEA. NO LOOSE STOOLS SINCE EARLY LAST NIGHT. PATIENT REPORTS SLEEPING WELL THE LAST FEW HOURS. DENIES ANY NEEDS. ROOM CLEANED UP AND FRESH ICE WATER PROVIDED. CALL LIGHT IN REACH.
--- NOTE | 2018-08-20 06:14 | NUR ---
PATIENT WAS ABLE TO SLEEP MOST OF THE NIGHT AFTER MIDNIGHT. PAIN WELL CONTROLLED WITH PRN NORCO X1 AND PRN MOTRIN X1. MIDLINE INCISION WELL APPROXIMATED WITH STERI STRIPS IN PLACE. ABD SOFT, TENDER AT SITE. BOWEL SOUNDS ACTIVE. TOLERATING REGULAR DIET AND WALKING FREQUENTLY WHILE AWAKE. INDEPENDENT IN ROOM.
--- NOTE | 2018-08-20 07:27 | NUR ---
0715: Bedside report recived from Susu PINEDA. The pt states she has some pain and was medicated by Susu at this time. Call eagle is within reach and the pt appears in no distress at this time.
--- NOTE | 2018-08-20 08:28 | NUR ---
PT DENIES ANY PAIN AT THIS TIME. SHE DOES STATE SHE HAS SOME NAUSEA AND WAS MEDICATED ORDERED. PT HAS HAD 2 LOOSE STOOLS IN THE BR SINCE THE START OF THIS SHIFT AND WAS GIVEN MEDICATION FOR THIS THAT WAS SCHEDULED. PT NOW SITTING UP IN HER CHAIR EATING BREAKFAST AND APPEARS IN NO DISTRESS.
--- NOTE | 2018-08-20 09:33 | NUR ---
PT RESTING IN HER CHAIR AND STATES SHE FEELS A BIT OFF. SHE DENIES ANY CURRENT PAIN OR THE NEED FOR ANYTHING, VITAL SIGNS REMAIN STABLE. PT INSTUCTED TO CALL WITH ANY NEW PROBLEMS.
--- NOTE | 2018-08-20 11:16 | NUR ---
Pt sitting in her chair with no complaints of pain or nausea at this time.
--- NOTE | 2018-08-20 11:21 | NUR ---
It was suggested that the pt get up ambulate. Pt got up and is now walking in the halls with her family at this time and appears to be tolerating the walk well.
--- NOTE | 2018-08-20 11:59 | NUR ---
Pt resting in her recliner with no complaints and she is now eating her lunch. Family remain in the room visiting with the pt.
--- NOTE | 2018-08-20 12:14 | NUR ---
Dr Stafford to the pt's room and visiting with the pt and her family.
--- NOTE | 2018-08-20 13:48 | NUR ---
PT RESTING IN HER BED AND IS VISITING WITH HER FAMILY. SHE DENIES NAUSEA AT THIS TIME AND STATES HER PAIN IS A 5/10 FOR WHICH SHE WAS MEDICATED.
--- NOTE | 2018-08-20 17:28 | NUR ---
Pt states she has some nausea for which she was just treated for. She states it does feel like the nausea is beginning to pass. She denies pain. VSS.
--- NOTE | 2018-08-20 18:14 | NUR ---
PT HAS HAD SEVERAL BOUTS OF NAUSEA WHICH WERE WELL CONTROLED WITH ZOFRAN. PT HAD 3 LOOSE STOOLS BEFORE NOON AND HAS BEEN STARTED ON METAMUSEL AND HER IMODIUM DOSING HAS BEEN CHANGED AND SHE HAS HAD NO BM SINCE. INCISION APPEARS HEALTHY AND THE PT'S PAIN IS WELL CONTROLED WITH PRN NORCO.
--- NOTE | 2018-08-20 18:53 | NUR ---
Pt sitting up in her chair and she denies any pain or nausea at this time.
--- NOTE | 2018-08-20 19:05 | NUR ---
SHIFT REPORT RECEIVED. PATIENT RESTING IN RECLINER. DENIES PAIN OR NAUSEA. STATES SHE IS FEELING BLOATED. ENCOURAGED PATIENT TO AMULATE. PATIENT REQUEST SHOWER. IV COVERED AND SHOWER SET UP. NEW LINENS PLACED ON BED. FRESH GOWN PROVIDED.
--- NOTE | 2018-08-20 21:14 | NUR ---
PATIENT PROVIDED WITH EVENING MEDS PER REQUEST. PATIENT HAVING OCCATIONAL STOMACH CRAMPS RATED 3/10. PRN MOTRIN PROVIDED. NO NAUSEA AT THIS TIME. NO RECENT LOOSE STOOLS BUT PATIENT STATES "I FEEL LIKE ITS STARTING TO HAPPEN AGAIN". SECOND HAT PLACED IN TOILET AND ENCOURAGED PATIENT TO CALL STAFF WHEN SHE HAS A LOOSE STOOL SO IT CAN BE ASSESSED. PATIENT REPORTS THE STOOL HAS NO SMELL AND IS LIQUID, POSSIBLE RED COLORED BUT PATIENT IS UNSURE. SHE AGREES TO ALERT STAFF IF SHE HAS ANOTHER EPISODE. PATIENT'S MIDLINE INCISION IS WELL APPOXIMATED, STERI STRIPS IN PLACE. PATIENT VERBALIZED CONCERN ABOUT SOME "PUS POCKETS" AT THE BASE OF THE INCISION. THIS RN CAN FEEL TWO NODULES UNDER THE INCISION IN THE BOTTOM INCH OF THE INCISION. NO REDNESS OR SWELLING NOTED. NO DRAINAGE OR OBVIOUS OPEN AREAS. INCISION IS TENDER THROUGHOUT. ABD IS MILDLY DISTENDED. BOWEL SOUNDS ACTIVE. PATIENT PROVIDED WITH SNACK PER REQUEST.
--- NOTE | 2018-08-20 23:00 | NUR ---
PATIENT RESTING IN BED. PREPARING TO SLEEPING. DENIES ANY NEEDS AT THIS TIME. PAIN WELL CONTORLLED. NO LOOSE STOOLS BUT ONGOING "RUMBLING".
--- NOTE | 2018-08-21 02:30 | NUR ---
SCHEDULED IMODIUM PROVIDED. NO LOOSE STOOLS SINCE LAST IN THE ROOM. PATIENT REPORTS PAIN 3/10, PRN NORCO PROVIDED. HAZEL DENIES ANY FURTHER NEEDS. STATES SHE HAS BEEN SLEEPING WELL.
--- NOTE | 2018-08-21 04:45 | NUR ---
PATIENT APPEARS TO BE SLEEPING SOUNDLY. RR 18.
--- NOTE | 2018-08-21 06:00 | NUR ---
MORNING IMODIUM PROVIDED. PATIENT DENIES PAIN AT THIS TIME. FRESH WATER PROVIDED.
--- NOTE | 2018-08-21 06:19 | NUR ---
PATIENT HAD A BETTER NIGHT. SLEPT MOST OF THE SHIFT. PAIN WELL CONTROLLED WITH NORCO AND MOTRIN X1. NO NAUSEA. NO LOOSE STOOLS. VS STABLE. OUTPUT QS. PATIENT SHOWERED AND AMBULATED IN HALLWAY EARLY IN THE SHIFT. MIDLINE INCISION APPEARS WELL APPROXIMATED, STERI STRIPS IN PLACE. TOLERATING REGULAR DIET.
--- NOTE | 2018-08-21 06:32 | NUR ---
VS and I&O's were complete.
--- NOTE | 2018-08-21 07:20 | NUR ---
PT RESTING IN BED DID NOT WANT TO BE ASSISTED OUT OF BED AT THIS TIME. AGREED TO AMBULATE IN HALLS ONCE AWAKE BETTER
--- NOTE | 2018-08-21 09:24 | NUR ---
pt reprots pain 1-07/02 at this time. pt reports motrin working well for her pain.
--- NOTE | 2018-08-21 10:37 | NUR ---
PT WAS UP AMBULATING TWO LAPS IN THE HALLS, NOW SITTING UP IN RECLINER. REPORTS PAIN WELL MANAGED AT THIS TIME.
--- NOTE | 2018-08-21 11:23 | NUR ---
SPOKE WITH DRY CLEANING ATTENDANT WHO STATES PATIENT HAS NO CM NEEDS KNOWN AT THIS TIME. WILL CONTACT US IF NEEDS ARISE BEFORE DISCHARGE.
--- NOTE | 2018-08-21 11:32 | NUR ---
PATIENT CALLED AND COMPLAINED OF BEING LIGHT HEADED. THIS PROCESS TECH WENT AND TOOK VITALS, VITALS GOOD. FRESH WATER GIVEN. RN NOTIFIED. CALL LIGHT IN REACH. NO FURTHER NEEDS AT THIS TIME.
--- NOTE | 2018-08-21 12:03 | NUR ---
PT C/O 4/10 PAIN TO ABDOMEN, GAVE NORCO 5/325 MG 1 TAB PO PRN. PT ALSO C/O FEELING NAUSEATED, GAVE ZOFRAN 4 MG IV PRN. PT SITTING UP IN RECLINER AFTER AMBULATING IN HALLS INDEPENDANTLY. DENIES OTHER NEEDS.
--- NOTE | 2018-08-21 13:22 | NUR ---
PT SITTING UP IN RECLINER, FAMILY AT BEDSIDE. PT RATED PAIN TO ABDOMEN 3/10. ATE 50% OF LUNCH. PERSONAL SUPPLIES AND CALL LIGHT IN REACH.
--- NOTE | 2018-08-21 14:09 | NUR ---
PATIENT IN BED RESTING, FAMILY IN ROOM. CALL LIGHT IN REACH. NO FURTHER NEEDS AT THIS TIME.
[2018-08-21] MEDS ORDERED: HYDROCODON-ACE1 EA10 PO (14:37)
[2018-08-21] MEDS ORDERED: IBUPROFEN600 MG PO (14:37)
[2018-08-21] MEDS ORDERED: FAMOTIDINE20 MG PO (14:38)
[2018-08-21] MEDS ORDERED: OFIRMEV1000 MG/10 IV (14:38)
[2018-08-21] MEDS ORDERED: METAMUCIL660 GM PO (14:49)
[2018-08-21] MEDS ORDERED: TYLENOL325 MG PO (14:49)
[2018-08-21] MEDS ORDERED: LOPERAMIDE2 MG PO (14:49)
[2018-08-21] MEDS ORDERED: ONDANSETRON ODT4 MG PO (15:42)
--- NOTE | 2018-08-21 15:51 | NUR ---
Patient experiencing nausea, received verbal authorization to call in RX for ondansetron to [facility].
--- NOTE | 2018-08-21 16:05 | NUR ---
REVIEWED DISCHARGE INSTRUCTIONS AND EDUCATION WITH PT. QUESTIONS ASKED AND ANSWERED. PT VERBALIZED UNDERSTANDING. IV D/C'D WNL.
--- NOTE | 2018-08-22 18:08 | DS ---
[facility] [address] [place], [place] [address] Signed ADMISSION DATE: 08/15/2018 DISCHARGE DATE: 08/21/2018 REASON FOR ADMISSION: This 33-year-old white woman is a patient of ISAIAS Mitchell. She has had 7 years of monthly rectal bleeding and has undergone hysterectomy and left salpingo-oophorectomy for advanced endometriosis by Dr. Mckeon in [place] in 2017. She had extensive endometriosis noted at that time. She continues to have monthly rectal bleeding. She has no vaginal bleeding. She was evaluated by Dr. Nimesh Jackson, Dr. Garcia, statistics tutor in [place] and others. She underwent colonoscopy by [facility] where she was noted to have at approximately 12 cm from the anal verge, a mural abnormality highly suggestive of intramural endometrioma. This was biopsied and diagnosis confirmed. She is admitted at this time to undergo a low anterior resection for remedy of this problem as well as other indicated procedures as necessary. PERTINENT PHYSICAL EXAMINATION: GENERAL: Pleasant white woman, is obese. Trachea midline. CHEST: Clear. HEART: Regular without murmur. ABDOMEN: Soft, nontender. EXTREMITIES: Without clubbing, cyanosis, or edema. HOSPITAL COURSE: On August 15, 2018, she underwent low pelvic midline laparotomy where she was noted to have a large 5 cm ovarian mass. This was excised and likely was consistent with a chocolate cyst (endometrioma type cyst). 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 She underwent a low-anterior resection with side-to-end coloproctostomy. The mass itself in the wall of the rectum was easily identified and there was both extrinsic and intramural endometriosis noted within the specimen resected. There were no other findings of concern and a Anson drain was placed in the pelvis. Postoperative course was unremarkable. She was allowed liquids the day of operation in small amounts and is maintained with a NET SOFTWARE ARCHITECT device. Two days after operation, she had bowel function and progressive advancement of her diet was undertaken. The drain showed only serosanguineous fluid. In time, she was tolerating a regular diet. The drain was able to be removed. She did have a fair amount of diarrhea for which loperamide was initiated with good effect. Ultimately, her diarrhea ceased entirely and she will be on a p.r.n. basis with loperamide as well as a fiber supplement (Citrucel). Pathology report has yet to return regarding the ovarian mass and the segment of rectosigmoid that was removed. She has had no menopausal symptoms since operation. Electronically Signed By: ANDRES AMATO MD 08/22/18 1808 PATIENT NAME: NORTH LORENZO DISCHARGE SUMMARY DATE OF : [birth year] REPORT #: [id number] PHYSICIAN: ANDRES AMATO MD PCP: JOURDAN BOATENG PAC REPORT IS CONFIDENTIAL AND NOT TO BE RELEASED WITHOUT AUTHORIZATION [facility] [address] [place] [id number] Signed She discharged to home in good condition, anticipating return to see me in approximately a month. DISCHARGE MEDICATIONS: Include: 1. Ibuprofen 600 mg p.o. q.6 hours as needed for pain, #30, refill two. 2. Montgomery 5/325 1-2 p.o. q.4 hours as needed for pain, #10. 3. Tylenol 650 mg p.o. q.6 hours p.r.n. pain, #60, refill three. 4. She will resume her usual medication of trazodone 100 mg p.o. at bedtime. 5. Cetirizine 10 mg at bedtime as needed. 6. Alprazolam (Xanax) 0.5 mg p.o. as needed for anxiety. 7. Additionally, she will have available loperamide 2 mg tablets to take one if loose stool no more than 8 tablets total in a day. In addition, she will initiate Citrucel one packet or scoop daily, powder form only. DISCHARGE DIAGNOSES: 1. Intramural endometrioma of rectum, status post low anterior resection with coloproctostomy. 2. A 5 cm ovarian mass, right adnexa, probable chocolate cyst. 3. History of advanced endometriosis with history of hysterectomy, Dr. Mckeon in [place] in 2016. 4. Long-standing rectal bleeding (greater than 7 years), likely related to endometrioma. MD CHRISTIN Pat/MODL /[id number] cc: Dr. Jose Jackson MD Copies: NIMESH JACKSON MD Electronically Signed By: ANDRES AMATO MD 08/22/18 1808 PATIENT NAME: NORTH LORENZO DISCHARGE SUMMARY DATE OF : 81 REPORT #: [id number] PHYSICIAN: ANDRES AMATO MD PCP: JOURDAN BOATENG PAC REPORT IS CONFIDENTIAL AND NOT TO BE RELEASED WITHOUT AUTHORIZATION [facility] [address] [place] [place], [place] [address] Signed ~ Electronically Signed By: ANDRES AMATO MD 08/22/18 1808 PATIENT NAME: NORTH LORENZO DISCHARGE SUMMARY DATE OF : [birth year] REPORT #: [id number] PHYSICIAN: ANDRES AMATO MD PCP: JOURDAN BOATENG PAC REPORT IS CONFIDENTIAL AND NOT TO BE RELEASED WITHOUT AUTHORIZATION
== END 2018-08-21 16:13 | disposition home or self-care (01) | DRG 331 ==
LOC: DSVR 08-15 07:05 → MS 08-15 08:30
PROVIDERS: ADMIT Surgery
PROC: 0DBP0ZZ Excision of Rectum, Open Approach (ICD-10-PCS; 2018-08-15)
PROC: 0UT00ZZ Resection of Right Ovary, Open Approach (ICD-10-PCS; 2018-08-15)
PROC: 0UB50ZZ Excision of Right Fallopian Tube, Open Approach (ICD-10-PCS; 2018-08-15)
PROC: 0DJD8ZZ Inspection of Lower Intestinal Tract, Via Natural or Artificial Opening Endoscopic (ICD-10-PCS; 2018-08-15)
PROC: 0DBN0ZZ Excision of Sigmoid Colon, Open Approach (ICD-10-PCS; principal; 2018-08-15 08:30)
DX: N80.5 Endometriosis of intestine (principal); N80.1 Endometriosis of ovary; R19.7 Diarrhea, unspecified; L29.9 Pruritus, unspecified; T40.2X5A Adverse effect of other opioids, initial encounter; Y92.239 Unspecified place in hospital as the place of occurrence of the external cause; E66.9 Obesity, unspecified; Z68.32 Body mass index [BMI] 32.0-32.9, adult; Z88.5 Allergy status to narcotic agent; Z88.0 Allergy status to penicillin; Z90.710 Acquired absence of both cervix and uterus; Z90.79 Acquired absence of other genital organ(s); Z90.721 Acquired absence of ovaries, unilateral; Z79.899 Other long term (current) drug therapy
CPT/HCPCS: 00840; 87493; 94762; J0131; J0694; J1100; J1170; J1200; J1644; J1885; J2250; J2270; J2274; J2300; J2405; J2704; J7060; J7120

== ENCOUNTER 2019-10-27 18:45 | Emergency (ER) | payer BC ==
[~2019-10-27] VITALS: Ht 160 cm; Wt 87.1 kg
[~2019-10-27 18:45] MED LIST changes: +FAMOTIDINE20 MG PO; +HYDROCODON-ACE1 EA10 PO; +IBUPROFEN600 MG PO; +LOPERAMIDE2 MG PO; +METAMUCIL660 GM PO; +OFIRMEV1000 MG/10 IV; +ONDANSETRON ODT4 MG PO; +TYLENOL325 MG PO; +XANAX0.5 MG PO
--- OUTSIDE RECORDS SUMMARY | 2019-10-27 18:48 | XMS ---
PreManage Notification: NORTH LORENZO Security Chicken Fancier Events No recent Security Events currently on file CRITERIA MET - PDMP CARE PROVIDERS JOURDAN BOATENG Physician Tire Debeader Current PHONE: Unknown Ciro has no Care Guidelines for this patient. EMirna VISIT COUNT (12 MO.) 1 [place] TOTAL 1 NOTE: Visits indicate total known visits. ED/UCC VISIT TRACKING (12 MO.) 10/27/2019 18:46 [facility] [place] TYPE: Emergency COMPLAINT: - ABD PAIN INPATIENT VISIT TRACKING (12 MO.) No inpatient visits to display in this time frame [id number]
[2019-10-27] MEDS ORDERED: ESTRADIOL1 MG PO (19:11)
== END 2019-10-27 21:52 | disposition home or self-care (01) ==
LOC: ED 18:45
DX: A08.4 Viral intestinal infection, unspecified (principal); Z88.1 Allergy status to other antibiotic agents; Z88.6 Allergy status to analgesic agent; Z79.899 Other long term (current) drug therapy
CPT/HCPCS: 80053; 81001; 83690; 85025; 96360; 96361; 99284-25; J7030

== ENCOUNTER 2023-03-31 07:48 | Day surgery (SDC) | payer OTHER ==
[2023-03-28 16:15] VITALS: BP 140/98
[2023-03-28 16:57] VITALS: BP 140/98
[~2023-03-31] VITALS: Ht 160 cm; Wt 111.8 kg
[~2023-03-31 07:48] MED LIST changes: +ESTRADIOL1 MG PO
[2023-03-31 08:01] VITALS: BP 126/69
[2023-03-31] MEDS ORDERED: LISINOPRIL20 MG PO (08:03)
[2023-03-31] MEDS ORDERED: PANTOPRAZOLE SO40 MG PO (08:03)
[2023-03-31] MEDS ORDERED: HYDROXYZINE HCL25 MG PO (08:05)
[2023-03-31] MEDS ORDERED: ALEVE220 M1 PO (08:05)
[2023-03-31] MEDS ORDERED: VITAMIN D325 MCG PO (08:05)
[2023-03-31] MEDS ORDERED: METFORMIN HCL500 M1 PO (08:06)
[2023-03-31] MEDS ORDERED: ACETAMINOPHEN500 MG PO (10:22)
[2023-03-31] MEDS ORDERED: OXYCODON-ACETA1 EAC2 PO (10:22)
[2023-03-31] MEDS ORDERED: IBUPROFEN600 MG PO (10:22)
--- NOTE | 2023-03-31 10:26 | NUR ---
03/31/23 1026 Cecilia Mustafa 1009- PT ARRIVES TO PACU, SUPINE POSITION WITH OPA IN PLACE. PT MAINTAINING AIRWAY WITH JUST OPA, O2 AT 10L PER MASK. ABD SOFT, NON DISTENDED, LAP SITES X 4 WITH STERI STRIPS. PT NON REACTIVE TO STIMULUS AT THIS TIME. ALL MONITORS IN PLACE. WILL CONTINUE TO MONITOR. 1013- PT OPENING EYES AND LOOKING AROUND RUBBING FACE. PT GIVEN COMMANDS TO OPEN MOUTH TO REMOVE OPA, AFTER MULTIPLE TIMES PT OPENS MOUTH. O2 REMOVED AT THIS TIME. WILL CONTINUE TO MONITOR.
[2023-03-31 11:07] VITALS: BP 138/72
--- NOTE | 2023-03-31 11:11 | NUR ---
LE 1105: PT IS BACK TO DS FROM PACU. FAMILY IS AT THE BEDSIDE. PT IS TOLERATING SIPS OF WATER. CALL LIGHT WITHIN REACH. SHE IS REPORTING DISCOMFORT IN THE UPPER ABDOMEN. PT AND ARE SHOWN PHOTOS FROM SURGERY. TAKES RX TO PHARMACY TO DROP IT OFF. DC CRITERIA IS REVIEWED WITH PT AND MOM.
[2023-03-31 12:02] VITALS: BP 167/100
--- NOTE | 2023-03-31 12:05 | NUR ---
LE 1200: PT IS ASSISTED UP OOB TO THE BATHROOM, WHERE SHE IS ABLE TO VOID QS 700MLS OF PALE YELLOW URINE. SHE IS HELPED BACK TO BED. SHE WOULD LIKE TO HANG OUT A LITTLE BIT LONGER. HER PIN IS STAYING STABLE AT ABOUT 5/10. BP IS ELEVATED, BUT NO SYMPTOMS AT THIS TIME. CALL LIGHT WITHIN REACH. FAMILY AT THE BEDSIDE. NO ADDITIONAL NEEDS OR CONCERNS.
[2023-03-31 12:53] VITALS: BP 157/100
--- NOTE | 2023-03-31 13:20 | NUR ---
LE 1250: PT TURNS VENETIAN BLIND ASSEMBLER LIGHT AND INDICATES THAT SHE WOULD LIKE TO GET DRESSED AND GO HOME. SHE IS EDUCATED ON HOW TO BEST TO GET DRESSED. ONCE DRESSED SHE IS ASKED TO EITHER OPEN HER CURTAIN OR TURN ON HER CALL LIGHT. LE 1255: PT TURNS VENETIAN BLIND ASSEMBLER LIGHT TO INDICATE SHE IS DRESSED. PT AND ARE GIVEN WRITTEN AND VERBAL DC INSTRUCTIONS. THEY BOTH VERBALIZE UNDERSTANDING. QUESTIONS ARE ASKED AND ANSWERED. LE 1300: PT IS TAKEN TO PERSONAL VEHICLE VIA WC, WHERE SHE TRANSFERS HERSELF WITHOUT ISSUES.
--- NOTE | 2023-04-01 11:43 | OR ---
[facility] [address] [place], [place] [address] Signed DATE OF OPERATION: 03/31/2023 SURGEON: Andres Amato MD PREOPERATIVE DIAGNOSES: 1. Chronic calculous cholecystitis. 2. History of sigmoid resection for endometrioma. 3. Obesity. POSTOPERATIVE DIAGNOSES: 1. Chronic calculous cholecystitis. 2. History of sigmoid resection for endometrioma. 3. Obesity. PROCEDURES: 1. Laparoscopic cholecystectomy with intraoperative cholangiogram. 2. Surgeon-directed fluoroscopy. ANESTHESIA: General endotracheal, Andres Velazquez CRNA and local 10 mL of 0.25% Marcaine with epinephrine. INDICATION: This 37-year-old white woman is a patient of ISAIAS Vallejo and known to me from the past, undergoing sigmoid resection and right oophorectomy in 2019 for advanced colonic endometriosis and right Charcot cyst. She has recovered from that well. The patient has been having significant subscapular pain and was noted to have elevated liver enzymes. Evaluation included gallbladder ultrasound showing gallstones. There was no evidence of gallbladder wall thickening or pericholecystic fluid. An ultrasound was performed on March 10, 2023 confirming these findings. She is admitted at this time to undergo cholecystectomy preferred by laparoscopic approach for symptomatic gallstones. She understands the risk of bleeding, infection, bile duct injury, need for open procedure and need for other indicated procedures and wishes to proceed. FINDINGS: Adhesions from prior operation were not too extensive in the lower abdomen. There was no sign of incisional hernia. The gallbladder itself showed chronic inflammatory change and the liver was entirely normal. The cholangiogram was normal as well. The gallbladder once excised showed multiple yellow multifaceted stones about 10 mm in size. Electronically Signed By: ANDRES AMATO MD 04/01/23 1143 PATIENT NAME: NORTH LORENZO OPERATIVE REPORT DATE OF : 81 REPORT #: [id number] PHYSICIAN: ANDRES AMATO MD PCP: JOURDAN BOATENG PAC REPORT IS CONFIDENTIAL AND NOT TO BE RELEASED WITHOUT AUTHORIZATION [facility] [address] [place], [place] [address] Signed The mucosa was chronically and subacutely inflamed. DESCRIPTION OF PROCEDURE: The patient was brought to the operating room, given a general endotracheal anesthetic. Preoperative antibiotic Ancef was given. Sequential compression device stockings were used and heparin subcutaneously administered. The abdomen was prepared with a chlorhexidine solution and draped sterilely. The previous incision extended from the symphysis pubis to the umbilicus. An infraumbilical incision was made and using an open Myra cannula technique pneumoperitoneum was achieved to a level of 14 mmHg of carbon dioxide gas. Intra-abdominal inspection showed no sign of ascites or carcinomatosis. The gallbladder was chronically inflamed first visualization. Three additional trocars were placed in usual configuration in the subxiphoid, right midclavicular, and right anterior axillary line. Gallbladder was elevated cephalad and retracted laterally. Meticulous care was taken in dissection of the infundibulum of the gallbladder, which was relatively shortened in relation to the cystic duct. A dominant cystic arterial branch was doubly clipped and later divided. The cystic duct once completely dissected free was used and implying the critical view of safety allowed for application of a clip to the gallbladder cystic duct junction. A transverse choledochotomy was made in the cystic duct. The cystic duct was noted to be thickened. Using an Bonilla type cholangiocatheter intraoperative cholangiography was undertaken showing free flow of contrast into the biliary tree with profound and rapid emptying into the duodenum. Notably, an air bubble was seen which was forced through the ampulla without problem. As retrograde flow was not forthcoming initially to better visualize the common hepatic duct and intrahepatic biliary radicles, morphine was administered by the electronic train control technician. Although not profoundly beneficial, it did allow for retrograde filling of the proximal biliary tree, which was normal. The catheter was removed and the cystic duct was triply clipped and divided. Subsequently, the cystic artery branch was divided. The gallbladder was then dissected free in a retrograde fashion using electrocautery. A small leak in the gallbladder allowed for egress of bile but no stones. The gallbladder is placed in an endobag and extracted through the infraumbilical port site without problem, opened on the back table and found to have multiple multifaceted yellow 1 cm gallstones. The mucosa was chronically inflamed. Irrigation of the subhepatic space showed no sign of bile leak, bleeding or other problems. Once irrigation fluid was completely suctioned free, the trocars were then removed. The epigastric trocar site had some oozing and therefore secured with electrocautery. Once all trocar sites were sheared as hemostatic, plans were made for closure. Irrigation was undertaken in the wounds and 10 mL of 0.25% Marcaine with epinephrine was injected locally. The skin was then closed with interrupted 3-0 Vicryl after closure of the infraumbilical fascial incision with interrupted 0 Vicryl and a running 0 PDS suture. Steri-Strips were applied and the patient was ultimately extubated and transferred to the recovery room in good condition Electronically Signed By: ANDRES AMATO MD 04/01/23 1143 PATIENT NAME: NORTH LORENZO OPERATIVE REPORT DATE OF : 81 REPORT #: [id number] PHYSICIAN: ANDRES AMATO MD PCP: JOURDAN BOATENG PAC REPORT IS CONFIDENTIAL AND NOT TO BE RELEASED WITHOUT AUTHORIZATION [address] [place] [address] Signed having suffered no complications. Sponge, needle, and instrument counts were reported as correct x3. MD CHRISTIN Pat/KEMI /[id number] cc: Jourdan Boateng PA-C Copies: ~ Electronically Signed By: ANDRES AMATO MD 04/01/23 1143 PATIENT NAME: NORTH LORENZO OPERATIVE REPORT DATE OF : 81 REPORT #: [id number] PHYSICIAN: ANDRES AMATO MD PCP: JOURDAN BOATENG PAC REPORT IS CONFIDENTIAL AND NOT TO BE RELEASED WITHOUT AUTHORIZATION
--- NOTE | 2023-04-06 15:22 | PATH ---
[facility] [address] [facility] [place], [place] [address] Signed SPECIMEN(S): A GALLBLADDER SPECIMEN SOURCE: A. GALLBLADDER CLINICAL HISTORY: Cholecystitis and cholelithiasis FINAL PATHOLOGIC DIAGNOSIS: Gallbladder, cholecystectomy: - Chronic calculous cholecystitis. JVR:[facility] MICROSCOPIC EXAMINATION: Histologic sections of all submitted blocks are examined by light microscopy. These findings, together with the gross examination, support the pathologic diagnosis. GROSS DESCRIPTION: The specimen, labeled and designated "bethany Lorenzo," is received in formalin and consists of Specimen: Disrupted/previously opened gallbladder. Dimensions: 5.5 x 3.5 x 2.0 cm. Serosa: Yellow-green smooth. Cystic Duct: Obstruction cannot be determined specimen received opened, margin inked black and shaved. Calculi: Multiple yellow multifaceted calculi (0.9 to 1.0 cm in greatest dimension, and 4.5 x 4.5 x 1.5 cm in aggregate). Mucosa: Yellow-green and velvety. Wall thickness: 0.3 cm. Lymph node: No pericystic lymph nodes are grossly identified. Additional: None. Intake Coordinator sections are submitted in (A1). AC (under the direct supervision of a pathologist) The Gross Description was prepared using a voice recognition system. The report was reviewed for accuracy; however, sound-alike word errors, addition and/or deletions may occur. If there is any question about this report, please contact Client Services. PERFORMING LABORATORY: Technical component was performed by [employer], Russell Marinelli, PATIENT NAME: NORTH LORENZO PATHOLOGY DATE OF : 81 REPORT #: [id number] PHYSICIAN: IMCKEY JORDAN PCP: JOURDAN BOATENG PAC REPORT IS CONFIDENTIAL AND NOT TO BE RELEASED WITHOUT AUTHORIZATION [address] [place], [place] [address] [place] [address] (CLIA# [id number]). [facility] [address] [address] (CLIA#: [id number]). Diagnostician: Bryson Webster MD Pathologist Electronically Signed 04/06/2023 Copies: ~ PATIENT NAME: NORTH LORENZO PATHOLOGY DATE OF : 81 REPORT #: [id number] PHYSICIAN: MICKEY JORDAN PCP: JOURDAN BOATENG PAC REPORT IS CONFIDENTIAL AND NOT TO BE RELEASED WITHOUT AUTHORIZATION
== END 2023-03-31 13:00 | disposition home or self-care (01) ==
LOC: DS 07:48
PROVIDERS: ATTEND Surgery
PROC: BF502Z0 Other Imaging of Bile Ducts using Fluorescing Agent, Intraoperative (ICD-10-PCS; 2023-03-31)
PROC: 0FT44ZZ Resection of Gallbladder, Percutaneous Endoscopic Approach (ICD-10-PCS; principal; 2023-03-31 09:00)
DX: K80.10 Calculus of gallbladder with chronic cholecystitis without obstruction (principal); K66.0 Peritoneal adhesions (postprocedural) (postinfection); E66.9 Obesity, unspecified; Z68.41 Body mass index [BMI] 40.0-44.9, adult; Z90.49 Acquired absence of other specified parts of digestive tract; Z90.721 Acquired absence of ovaries, unilateral; Z88.0 Allergy status to penicillin; Z88.5 Allergy status to narcotic agent; Z79.899 Other long term (current) drug therapy
CPT/HCPCS: 00790; 74300; J0330; J0690; J1100; J1644; J1885; J2250; J2270; J2405; J2704; J2765; J3010; J3490; J7121; Q9967

== ENCOUNTER 2024-01-05 10:47 | Emergency (ER) | payer OTHER ==
[~2024-01-05] VITALS: Ht 160 cm; Wt 110.3 kg
[~2024-01-05 10:47] MED LIST changes: +ACETAMINOPHEN500 MG PO; +ALEVE220 M1 PO; +COLESTID1 GM PO; +HYDROXYZINE HCL25 MG PO; +LACTAID3000 UNI1 PO; +LISINOPRIL20 MG PO; +METFORMIN HCL500 M1 PO; +OXYCODON-ACETA1 EAC2 PO; +PANTOPRAZOLE SO40 MG PO; +TRIAMCINOLONE A15 G4 TOP; +VITAMIN D325 MCG PO
--- OUTSIDE RECORDS SUMMARY | 2024-01-05 10:48 | XMS ---
PreManage Notification: NORTH LORENZO Security Social Welfare Clerk Events No recent Security Events currently on file CRITERIA MET - PDMP CARE PROVIDERS Lenora Resendez Nurse Practitioner: Current RADIATION ONCOLOGY MANAGER-C PHONE: Unknown Ciro has no Care Guidelines for this patient. E.DMorales VISIT COUNT (12 MO.) 1 [place] TOTAL 1 NOTE: Visits indicate total known visits. ED/UCC VISIT TRACKING (12 MO.) 01/05/2024 10:47 [facility] [place] TYPE: Emergency COMPLAINT: - ABDOMINAL PAIN INPATIENT VISIT TRACKING (12 MO.) No inpatient visits to display in this time frame [email or web address]
[2024-01-05] MEDS ORDERED: CLINDAMYCIN HC150 MG PO (11:07)
[2024-01-05] MEDS ORDERED: KETOROLAC TROMETHAMINE 15 MG/ML VIAL IV ONE (11:15)
[2024-01-05] MEDS ORDERED: OXYBUTYNIN CHLOR5 M1 PO (11:32)
[2024-01-05 11:37] LABS: BASOPHILS 1.4 % (0-2); EOSINOPHILS 2.5 % (0-6); HEMATOCRIT 39.1 % (35.0-50.0); HEMOGLOBIN 13.2 g/dL (12.0-18.0); LYMPHOCYTES 28.9 % (24-44); MCH 29.5 (27-36); MCHC 33.8 g/dl (30-36); MCV 87.2 fl (81-99); MONOCYTES 6.2 % (0-12); PLATELET COUNT 403 K/uL (140-440); RBC 4.48 M/ul (4.3-5.7); RDW 13.2 (10.5-15.0)
[2024-01-05 11:45] LABS: ALBUMIN 3.8 g/dL (3.4-5.0); ANION GAP 13.3 (7-21); BILIRUBIN, TOTAL 0.3 ng/dL (0.2-1.0); CALCIUM 9.3 mg/dL (8.5-10.1); CREATININE, SERUM 0.95 mg/dL (0.55-1.02); POTASSIUM 4.3 mmol/L (3.5-5.1); PROTEIN, TOTAL 7.6 g/dL (6.4-8.2)
[2024-01-05 11:48] LABS: BILIRUBIN, URINE NEGATIVE (negative); BLOOD/HGB, URINE NEGATIVE (Negative); KETONE, URINE NEGATIVE (Negative); LEUK ESTERASE, URINE NEGATIVE (negative); NITRITE, URINE NEGATIVE (negative)
[2024-01-05] MEDS ORDERED: DILAUDID2 MG PO (12:14)
[2024-01-05 12:27] VITALS: BP 153/107
== END 2024-01-05 12:28 | disposition home or self-care (01) ==
LOC: ED 10:47
PROVIDERS: Emergency Medicine
DX: R10.31 Right lower quadrant pain (principal); G47.00 Insomnia, unspecified; Z79.84 Long term (current) use of oral hypoglycemic drugs; Z79.818 Long term (current) use of other agents affecting estrogen receptors and estrogen levels; Z79.899 Other long term (current) drug therapy; Z88.0 Allergy status to penicillin; Z88.5 Allergy status to narcotic agent; Z91.011 Allergy to milk products
CPT/HCPCS: 36415; 80053; 81003; 85025; 96374; 99284-25; J1885

== ENCOUNTER 2024-03-26 06:00 | Day surgery (SDC) | payer OTHER ==
[2024-03-21 08:16] VITALS: BP 125/89
[~2024-03-26] VITALS: Ht 160 cm; Wt 111.4 kg
[~2024-03-26 06:00] MED LIST changes: +CLINDAMYCIN HC150 MG PO; +DILAUDID2 MG PO; +LACTATED RINGER'S 1,000 ML IV SCH; +OXYBUTYNIN CHLOR5 M1 PO; +PHENTERMINE H37.5 MG PO
[2024-03-26 06:08] VITALS: BP 128/72
[2024-03-26] MEDS ORDERED: CEFAZOLIN SODIUM 2 GM/20 ML SYR IV SCH (07:00)
[2024-03-26] MEDS ORDERED: IBLOOD GLUCOSE TEST STRIP 1 EA TEST VI PRN ×2 (07:00→07:45)
[2024-03-26] MEDS ORDERED: LIDOCAINE HCL 1% 5 ML SDV INJ ONE (07:00)
[2024-03-26] MEDS ORDERED: fentaNYL citrate 100 MCG/2 ML VIAL ONE (07:20)
[2024-03-26] MEDS ORDERED: KETOROLAC TROMETHAMINE 30 MG/ML VIAL ONE (07:20)
[2024-03-26] MEDS ORDERED: LIDOCAINE HCL 2% 5 ML SDV ONE (07:20)
[2024-03-26] MEDS ORDERED: ACETAMINOPHEN 1,000 MG/100 ML VIAL ONE (07:20)
[2024-03-26] MEDS ORDERED: DEXAMETHASONE SOD PHOS 4 MG/ML VIAL ONE (07:20)
[2024-03-26] MEDS ORDERED: propofoL 200 MG/20 ML VIAL ONE (07:20)
[2024-03-26] MEDS ORDERED: ondansetron HCL 4 MG/2 ML VIAL ONE (07:20)
[2024-03-26] MEDS ORDERED: dexmedeTOMIDine HCl 200 MCG/2 ML VIAL ONE (07:23)
[2024-03-26] MEDS ORDERED: MORPHINE SULFATE 4 MG/ML VIAL IV PRN (07:30)
[2024-03-26] MEDS ORDERED: TRAMADOL HCL 50 MG TAB PO PRN (07:30)
[2024-03-26] MEDS ORDERED: ondansetron HCL 4 MG/2 ML VIAL IV PRN ×2 (07:30→07:45)
[2024-03-26] MEDS ORDERED: PHENAZOPYRIDINE HCL 95 MG TAB PO PRN (07:30)
[2024-03-26] MEDS ORDERED: HYDROmorphone HCL 1 MG/ML SYR IV PRN (07:30)
[2024-03-26] MEDS ORDERED: OXYCODONE/APAP 5/325 TAB PO PRN (07:30)
--- NOTE | 2024-03-26 07:34 | NUR ---
PT GONE FOR PROCEDURE. PROVIDED PRAYER.
[2024-03-26] MEDS ORDERED: NALOXONE HCL 0.4 MG SYR IV PRN (07:45)
[2024-03-26] MEDS ORDERED: fentaNYL citrate 50 MCG/ML SDV IV PRN (07:45)
--- NOTE | 2024-03-26 08:30 | NUR ---
03/26/24 0830 Francine Michel 0820 PT TO PACU AWAKE DENIES PAIN AND NAUSEA. PT MAINTAINS SATS ABOVE 95% ON ROOM AIR
[2024-03-26 08:43] VITALS: BP 139/82
--- NOTE | 2024-03-26 08:47 | NUR ---
HAS WATER CRACKERS AND CALL LIGHT S O AT BEDSIDE.
--- NOTE | 2024-03-26 09:35 | NUR ---
Patient medicated with Azo. Patient thinks that she can urinate at this time. patient ambulated without difficulty. She denies any dizziness. Patient has a small amount of red drainage on a chux pad.
--- NOTE | 2024-03-26 09:40 | NUR ---
Patient able to urinate 325ml. Patient allowed to get dressed at this time. At this time she has met all discharge criteria. She has eaten/drank without nausea/vomiting, denies pain, and has ambulated and voided. Discharge instructions were reviewed in detail and all questions were answered. Patient discharged via wheelchair where her is to take her home
[2024-03-26] MEDS ORDERED: SEVOFLURANE 250 ML BTL INH ONE (15:07)
== END 2024-03-26 09:50 | disposition home or self-care (01) ==
LOC: OPS 06:00 → DS 06:00 → OPS 07:30 → DS 07:30 → OPS 09:50
PROVIDERS: ATTEND Urology
PROC: 3E0K8GC Introduction of Other Therapeutic Substance into Genitourinary Tract, Via Natural or Artificial Opening Endoscopic (ICD-10-PCS; principal; 2024-03-26 07:30)
DX: N39.46 Mixed incontinence (principal); N32.81 Overactive bladder; I10 Essential (primary) hypertension; Z79.899 Other long term (current) drug therapy; Z88.5 Allergy status to narcotic agent; Z88.6 Allergy status to analgesic agent; Z90.49 Acquired absence of other specified parts of digestive tract; Z90.710 Acquired absence of both cervix and uterus
CPT/HCPCS: 00910; J0131; J0690; J1100; J1885; J2003; J2405; J2704; J3010; J7121; L8606

== ENCOUNTER 2024-11-04 13:27 | Emergency (ER) | payer OTHER ==
[~2024-11-04] VITALS: Ht 160 cm; Wt 105.0 kg
[~2024-11-04 13:27] MED LIST changes: -LACTATED RINGER'S 1,000 ML IV SCH
[2024-11-04] MEDS ORDERED: ZEPBOUND2.5 MG/0.1 SQ (13:45)
[2024-11-04] MEDS ORDERED: ERYTHROMYCIN1 GM OD (13:50)
[2024-11-04 16:37] LABS: BILIRUBIN, URINE NEGATIVE (negative); BLOOD/HGB, URINE NEGATIVE (Negative); KETONE, URINE NEGATIVE (Negative); LEUK ESTERASE, URINE NEGATIVE (negative); NITRITE, URINE NEGATIVE (negative)
[2024-11-04 18:10] VITALS: BP 00/00
== END 2024-11-04 18:10 | disposition left against medical advice (07) ==
LOC: ED 13:27
PROVIDERS: Emergency Medicine
DX: Z53.21 Procedure and treatment not carried out due to patient leaving prior to being seen by health care provider (principal)
CPT/HCPCS: 81003

== ENCOUNTER 2025-01-07 09:01 | Emergency (ER) | payer OTHER ==
[~2025-01-07] VITALS: Ht 160 cm; Wt 100.0 kg
[~2025-01-07 09:01] MED LIST changes: +ERYTHROMYCIN1 GM OD; +ZEPBOUND2.5 MG/0.1 SQ
--- OUTSIDE RECORDS SUMMARY | 2025-01-07 09:07 | XMS ---
PreManage Notification: NORTH LORENZO Security Animal Husbandry Technician Events No recent Security Events currently on file CRITERIA MET - Group Notification CARE PROVIDERS ELLA VALVERDE Family Medicine Current PHONE: Unknown Lenora Resendez Nurse Practitioner: Family [facility] CHIEF MECHANICAL OFFICER-C PHONE: Unknown Ciro has no Care Guidelines for this patient. Kavitha VISIT COUNT (12 MO.) 2 [place] TOTAL 2 NOTE: Visits indicate total known visits. ED/UCC VISIT TRACKING (12 MO.) 01/07/2025 09:01 [facility] [place] TYPE: Emergency COMPLAINT: - HEADACHE 11/04/2024 13:33 [facility] TYPE: Emergency COMPLAINT: - BACK PAIN NON INJURY RELATED DIAGNOSES: - Dorsalgia, unspecified - Procedure and treatment not carried out due to patient leaving prior to being seen by health care provider INPATIENT VISIT TRACKING (12 MO.) No inpatient visits to display in this time frame [id number]
[2025-01-07] MEDS ORDERED: PROBIOTIC1 EAC8 PO (09:25)
[2025-01-07] MEDS ORDERED: HYDROmorphone HCL 1 MG/ML SYR IV PRN (10:00)
[2025-01-07] MEDS ORDERED: SODIUM CHLORIDE 0.9% 500 ML IV PRN (10:00)
[2025-01-07 10:29] LABS: BASOPHILS 1.3 % (0.1-1.2); EOSINOPHILS 1.7 % (0.7-5.8); LYMPHOCYTES 28.8 % (19.3-51.7); MCH 30.4 PG (25.6-32.2); MCHC 34.5 g/dL (32.2-35.5); MCV 87.9 fL (79.4-94.8); MONOCYTES 7.5 % (4.7-12.5); NEUTROPHILS 60.5 % (34.0-71.1); RBC 4.48 M/uL (3.93-5.22)
[2025-01-07 10:47] LABS: ALT (SGPT) 23.0 U/L (14-59); AST (SGOT) 24.0 U/L (15-37); GLOMERULAR FILTRATION RATE,EST 83.0 mL/min (>60); PROTEIN, TOTAL 7.2 g/dL (6.4-8.2); UREA NITROGEN 21.0 mg/dL (7-18)
[2025-01-07] MEDS ORDERED: MIDAZOLAM HCL 5 MG/ML VIAL ONE (13:35)
[2025-01-07] MEDS ORDERED: MIDAZOLAM HCL 2 MG/2 ML VIAL IV ONE (14:00)
[2025-01-07 14:19] LABS: GLUCOSE, CSF 52 mg/dL (40-70)
[2025-01-07 14:20] LABS: CLARITY, CEREBROSPINAL FLUID CLEAR
[2025-01-07 14:23] LABS: COLOR, CEREBROSPINAL FLUID CLEAR; RBC, CEREBROSPINAL FLUID 0 /mm3; WBC, CEREBROSPINAL FLUID 0 /mm3
[2025-01-07] MEDS ORDERED: ACETAZOLAMIDE500 M1 PO (15:08)
[2025-01-07] MEDS ORDERED: HYDROCODON-ACE1 EA10 PO (15:11)
[2025-01-07] MEDS ORDERED: ONDANSETRON ODT8 MG PO (15:34)
[2025-01-07 15:51] VITALS: BP 133/91
== END 2025-01-07 15:51 | disposition home or self-care (01) ==
LOC: ED 09:01
PROVIDERS: Emergency Medicine
DX: G93.2 Benign intracranial hypertension (principal); I10 Essential (primary) hypertension; K21.9 Gastro-esophageal reflux disease without esophagitis; Z88.0 Allergy status to penicillin; Z88.5 Allergy status to narcotic agent; Z91.011 Allergy to milk products; Z79.84 Long term (current) use of oral hypoglycemic drugs; Z79.899 Other long term (current) drug therapy
CPT/HCPCS: 36415; 62270; 70450; 70496; 70498; 80053; 82945; 84157; 85025; 87070; 87075; 87205; 89051; 99284-25; J1171; J2250; J7040; Q9967

== ENCOUNTER 2025-01-09 18:55 | Emergency (ER) | payer OTHER ==
[~2025-01-09] VITALS: Ht 160 cm; Wt 95.0 kg
[~2025-01-09 18:55] MED LIST changes: +ACETAZOLAMIDE500 M1 PO; +ONDANSETRON ODT8 MG PO; +PROBIOTIC1 EAC8 PO
--- OUTSIDE RECORDS SUMMARY | 2025-01-09 19:02 | XMS ---
PreManage Notification: NORTH LORENZO Security Stone Paver Events No recent Security Events currently on file CRITERIA MET - Group Notification - [facility] - 2 Visits in 30 Days CARE PROVIDERS ELLA VALVERDE Family Medicine Current PHONE: Unknown Lenora Resendez Nurse Practitioner: Family Current CANE FEEDER-C PHONE: Unknown Ciro has no Care Guidelines for this patient. Kavitha VISIT COUNT (12 MO.) [address] [place] [address] TOTAL 3 NOTE: Visits indicate total known visits. ED/UCC VISIT TRACKING (12 MO.) 01/09/2025 18:56 [facility] [place] TYPE: Emergency COMPLAINT: - HEADACHE 01/07/2025 09:01 [facility] TYPE: Emergency COMPLAINT: - HEADACHE DIAGNOSES: - Allergy status to narcotic agent - Allergy status to penicillin - Allergy to milk products - Benign intracranial hypertension - Essential (primary) hypertension - Gastro-esophageal reflux disease without esophagitis - Headache, unspecified - [facility] (current) use of oral hypoglycemic drugs - Other long term care pharmacist (current) drug therapy 11/04/2024 13:[address] [facility] [place] TYPE: Emergency COMPLAINT: - BACK PAIN NON INJURY RELATED DIAGNOSES: - Dorsalgia, unspecified - Procedure and treatment not carried out due to patient leaving prior to being seen by health care provider INPATIENT VISIT TRACKING (12 MO.) No inpatient visits to display in this time frame [email or web address]
[2025-01-09] MEDS ORDERED: LACTATED RINGER'S 1,000 ML IV ONE (20:30)
[2025-01-09] MEDS ORDERED: PROCHLORPERAZINE EDISYLATE 10 MG/2 ML VIAL IV ONE (20:30)
[2025-01-09] MEDS ORDERED: KETOROLAC TROMETHAMINE 30 MG/ML VIAL IV ONE (20:30)
[2025-01-09] MEDS ORDERED: acetaZOLAMIDE 250 MG TAB PO ONE (21:30)
[2025-01-09 22:21] VITALS: BP 132/90
== END 2025-01-09 22:23 | disposition home or self-care (01) ==
LOC: ED 18:55
DX: G93.2 Benign intracranial hypertension (principal); G43.909 Migraine, unspecified, not intractable, without status migrainosus; K21.9 Gastro-esophageal reflux disease without esophagitis; G47.00 Insomnia, unspecified; Z79.899 Other long term (current) drug therapy; Z88.1 Allergy status to other antibiotic agents; Z88.5 Allergy status to narcotic agent; Z91.011 Allergy to milk products
CPT/HCPCS: 96374; 96375; 99283-25; A9270; J0780; J1200; J1885; J7121

== ENCOUNTER 2025-03-09 11:58 | Emergency (ER) | payer OTHER ==
[~2025-03-09] VITALS: Ht 160 cm; Wt 94.2 kg
--- OUTSIDE RECORDS SUMMARY | ~2025-03-09 | XMS | Continuity of Care Document ---
Demographics + + + | Address | [address] | | | [place] [address] | + + + | Preferred Language | Unknown | + + + | Marital Status | | + + + | Presybeterian Affiliation | Unknown | + + + | Race | White | + + + | Ethnic Group | Not or | + + + Author + + + | Author | [facility] | + + + | Organization | [facility] | + + + | Address | [address] | | | [place] [address] | + + + | Phone | | + + + Care Team Providers + + + + | Care Cardiac Care Nurse Name | Role | Phone | + + + + Unavailable | Unavailable | + + + + Unavailable | Unavailable | + + + + Allergies and Intolerances + + + + + + | date | description | facility | reaction | severity | + + + + + + | 2025-01-09 | Hydrocodone | [facility] D[facility] | Mild | | 00:00 | | [facility] | | | + + + + + + | 2025-01-09 | Amoxicillin | [facility] | Rash | Moderate | | 00:00 | | [facility] | | | + + + + + + | 2025-01-09 | Hydrocodone | [facility] | Dizziness | Mild | | 00:00 | | [facility] | | | + + + + + + | 2025-01-09 | Hydrocodone | [facility] | Dizziness | Mild | | 00:00 | | [facility] | | | + + + + + + | 2025-01-09 | Milk | [facility] | Diarrhea | Mild | | 00:00 | | [facility] | | | + + + + + + | 2025-01-09 | Amoxicillin | [facility] | Rash | Moderate | | 00:00 | | [facility] | | | + + + + + + | 2025-01-09 | Amoxicillin | [facility] | Rash | Moderate | | 00:00 | | [facility] | | | + + + + + + | 2025-01-09 | Milk | [facility] | Diarrhea | Mild | | 00:00 | | [facility] | | | + + + + + + Encounters No information. Functional Status No information. Immunizations No information. Medications + + + + | date | description | facility | + + + + | (no date) | COLESTIPOL HCL | [facility] | | | | [facility] | + + + + | (no date) | ONDANSETRON | [facility] | | | | [facility] | + + + + | (no date) | NAPROXEN SODIUM | [facility] | | | | [facility] | + + + + | (no date) | ALPRAZOLAM | [facility] | | | | [facility] | + + + + | (no date) | ESTRADIOL | [facility] | | | | [facility] | + + + + | (no date) | Cholecalciferol (Vitamin | [facility] | | | D3) | [facility] | + + + + | (no date) | Tirzepatide | [facility] | | | | [facility] | + + + + | (no date) | Erythromycin Base | [facility] | | | | [facility] | + + + + | (no date) | Lactase | [facility] | | | | [facility] | + + + + | 2025-01-07 00:00 | ONDANSETRON | [facility] | | | | [facility] | + + + + | (no date) | LISINOPRIL | [facility] | | | | [facility] | + + + + | (no date) | PANTOPRAZOLE SODIUM | [facility] | | | | [facility] | + + + + | 2025-01-07 00:00 | ACETAZOLAMIDE | [facility] | | | [facility] | + + + + | (no date) | TRAZODONE HCL | [facility] | | | | [facility] | + + + + | 2025-01-07 00:00 | HYDROCODONE | [facility] | | | BIT/ACETAMINOPHEN | [facility] | + + + + | (no date) | METFORMIN HCL | [facility] | | | | [facility] | + + + + | (no date) | OXYBUTYNIN CHLORIDE | [facility] | | | | [facility] | + + + + | (no date) | hydrOXYzine HCL | [facility] | | | | [facility] | + + + + Problems + + + + | date | description | facility | + + + + | 2025-01-07 00:00 | Intracranial hypertension | [facility] | | | | [facility] | + + + + | 2025-01-09 00:00 | Migraine headache | [facility] | | | | [facility] | + + + + | 2025-01-09 00:00 | Benign intracranial | [facility] | | | hypertension | [facility] | + + + + Procedures No information. Results/Labs +--------+--------+ +---------+--------+---------+ | test | date | facility | value | unit | notes | +--------+--------+ +---------+--------+---------+ + + | Result panel 1 | + + + + + +--------+ + + | WBC # Bld | 2025-01-07 | | 5.45 | (missing) | (missing) | | Auto | 10:20:07 | [facility] | | [facility] | | | | + + + +--------+ + + + + | Result panel 2 | + + + + + +--------+ + + | Lymphocytes | 2025-01-07 | | 28.8 | (missing) | (missing) | | NFr Bld | 10:20:07 | [facility] | | | | | Auto | [facility] | | | | + + + +--------+ + + + + | Result panel 3 | + + + + + +-------+ + + | Monocytes | 2025-01-07 | | 7.5 | (missing) | (missing) | | NFr Bld Auto | 10:20:07 | [facility] | | | | + + + +-------+ + + + + | Result panel 4 | + + + + + +-------+ + + | Eosinophil | 2025-01-07 | | 1.7 | (missing) | (missing) | | NFr Bld Auto | 10:20:07 | [facility] | | | | + + + +-------+ + + + + | Result panel 5 | + + + + + +-------+ + + | Basophils | 2025-01-07 | | 1.3 | (missing) | (missing) | | NFr Bld Auto | 10:20:07 | [facility] | | | | + + + +-------+ + + + + | Result panel 6 | + + + + + +--------+ + + | RBC # Bld | 2025-01-07 | | 4.48 | (missing) | (missing) | | Auto | 10:20:07 | [facility] | | | | + + + +--------+ + + + + | Result panel 7 | + + + + + +------+---------+ + | Glucose | 2025-01-07 | | 84 | mg/dL | (missing) | | SerPl-mCnc | 10:20:07 | [facility] | | | | + + + +------+---------+ + + + | Result panel 8 | + + + + + +------+---------+ + | BUN | 2025-01-07 | | 21 | mg/dL | (missing) | | SerPl-mCnc | 10:20:07 | [facility] | | | | + + + +------+---------+ + + + | Result panel 9 | + + + + + +--------+---------+ + | Creat | 2025-01-07 | | 0.89 | mg/dL | (missing) | | SerPl-mCnc | 10:20:07 | [facility] | | | | + + + +--------+---------+ + + + | Result panel 10 | + + + + + +------+ + + | eGFRcr | 2025-01-07 | | 83 | (missing) | (missing) | | SerPlBld | 10:20:07 | [facility] | | | | | CKD-EPI 2020 | [facility] | | | | + + + +------+ + + + + | Result panel 11 | + + + + + +---------+ + + | BUN/Creat | 2025-01-07 | | 23.59 | (missing) | (missing) | | SerPl | 10:20:07 | [facility] | | | | + + + +---------+ + + + + | Result panel 12 | + + + + + +-------+ + + | Sodium | 2025-01-07 | | 139 | (missing) | (missing) | | SerPl-sCnc | 10:20:07 | [facility] | | | | + + + +-------+ + + + + | Result panel 13 | + + + + + +-------+ + + | Potassium | 2025-01-07 | | 3.9 | (missing) | (missing) | | SerPl-sCnc | 10:20:07 | [facility] | | | | + + + +-------+ + + + + | Result panel 14 | + + + + + +-------+ + + | Chloride | 2025-01-07 | | 105 | (missing) | (missing) | | SerPl-sCnc | 10:20:07 | [facility] | | | | + + + +-------+ + + + + | Result panel 15 | + + + + + +------+ + + | CO2 | 2025-01-07 | | 25 | (missing) | (missing) | | SerPl-sCnc | 10:20:07 | [facility] | | | | + + + +------+ + + + + | Result panel 16 | + + + + + +--------+ + + | Anion Gap | 2025-01-07 | | 12.9 | (missing) | (missing) | | SerPl | 10:20:07 | [facility] | | | | | Calculated.4 | [facility]-sCnc | [facility] | | | | + + + +--------+ + + + + | Result panel 17 | + + + + + +--------+ + + | Hgb | 2025-01-07 | | 13.6 | (missing) | (missing) | | Bld-nc | 10:20:07 | [facility] | | | | + + + +--------+ + + + + | Result panel 18 | + + + + + +-------+---------+ + | Calcium | 2025-01-07 | | 9.7 | mg/dL | (missing) | | SerPl-mCnc | 10:20:07 | [facility] | | | | + + + +-------+---------+ + + + | Result panel 19 | + + + + + +-------+ + + | Prot | 2025-01-07 | | 7.2 | (missing) | (missing) | | SerPl-mCnc | 10:20:07 | [facility] | | | | + + + +-------+ + + + + | Result panel 20 | + + + + + +-------+ + + | Albumin | 2025-01-07 | | 4.1 | (missing) | (missing) | | Fernandol-Lynne | 10:20:07 | [facility] | | | | + + + +-------+ + + + + | Result panel 21 | + + + + + +-------+ + + | Globulin | 2025-01-07 | | 3.1 | (missing) | (missing) | | Ser-mCkandi | 10:20:07 | [facility] | | | | + + + +-------+ + + + + | Result panel 22 | + + + + + +--------+ + + | | 2025-01-07 | | 1.32 | (missing) | (missing) | | Albumin/Glob | 10:20:07 | [facility] | | | | | SerPl | [facility] | | | | + + + +--------+ + + + + | Result panel 23 | + + + + + +-------+---------+ + | Bilirub | 2025-01-07 | | 0.5 | mg/dL | (missing) | | SerPl-mCnc | 10:20:07 | [facility] | | | | + + + +-------+---------+ + + + | Result panel 24 | + + + + + +------+ + + | AST | 2025-01-07 | | 24 | (missing) | (missing) | | SerPl-cCnc | 10:20:07 | [facility] | | | | + + + +------+ + + + + | Result panel 25 | + + + + + +------+ + + | ALT | 2025-01-07 | | 23 | (missing) | (missing) | | SerPl-cCnc | 10:20:07 | [facility] | | | | + + + +------+ + + + + | Result panel 26 | + + + + + +------+ + + | ALP | 2025-01-07 | | 79 | (missing) | (missing) | | SerPl-[facility] | 10:20:07 | [facility] | | | | | | | - | | | | | | | [facility] | | | | + + + +------+ + + + + | Result panel 27 | + + + + + +--------+ + + | WBC # Bld | 2025-01-07 | | 5.45 | (missing) | (missing) | | Auto | 10:20:07 | [facility] | | | | + + + +--------+ + + + + | Result panel 28 | + + + + + +--------+ + + | Hct VFr.DF | 2025-01-07 | | 39.4 | (missing) | (missing) | | Bld Auto | 10:20:07 | [facility] | | | | + + + +--------+ + + + + | Result panel 29 | + + + + + +--------+ + + | RBC # Bld | 2025-01-07 | | 4.48 | (missing) | (missing) | | Auto | 10:20:07 | [facility] | | | | + + + +--------+ + + + + | Result panel 30 | + + + + + +--------+ + + | Hgb | 2025-01-07 | | 13.6 | (missing) | (missing) | | Bld-mCnc | 10:20:07 | [facility] | | | | + + + +--------+ + + + + | Result panel 31 | + + + + + +--------+ + + | Hct VFr.DF | 2025-01-07 | | 39.4 | (missing) | (missing) | | Bld Auto | 10:20:07 | [facility] | | | | + + + +--------+ + + + + | Result panel 32 | + + + + + +--------+ + + | RBC Auto | 2025-01-07 | | 87.9 | (missing) | (missing) | | | 10:20:07 | [facility] | | | | + + + +--------+ + + + + | Result panel 33 | + + + + + +--------+ + + | MCH RBC Qn | 2025-01-07 | | 30.4 | (missing) | (missing) | | Auto | 10:20:07 | [facility] | | | | + + + +--------+ + + + + | Result panel 34 | + + + + + +--------+ + + | MCHC RBC | 2025-01-07 | | 34.5 | (missing) | (missing) | | Auto-EntMCnc | 10:20:07 | [facility] | | | | + + + +--------+ + + + + | Result panel 35 | + + + + + +-------+ + + | Platelet # | 2025-01-07 | | 302 | (missing) | (missing) | | Bld Auto | 10:20:07 | [facility] | | | | + + + +-------+ + + + + | Result panel 36 | + + + + + +--------+ + + | Neutrophils | 2025-01-07 | | 60.5 | (missing) | (missing) | | NFr Bld | 10:20:07 | [facility] | | | | | Auto | [facility] | | | | + + + +--------+ + + + + | Result panel 37 | + + + + + +--------+ + + | Lymphocytes | 2025-01-07 | | 28.8 | (missing) | (missing) | | NFr Bld | 10:20:07 | [facility] | | | | | Auto | [facility] | | | | + + + +--------+ + + + + | Result panel 38 | + + + + + +-------+ + + | Monocytes | 2025-01-07 | | 7.5 | (missing) | (missing) | | NFr Bld Auto | 10:20:07 | [facility] | | | | | | | - | | | | | | | [facility] | | | | + + + +-------+ + + + + | Result panel 39 | + + + + + +--------+ + + | RBC Auto | 2025-01-07 | | 87.9 | (missing) | (missing) | | | 10:20:07 | [facility] | | | | + + + +--------+ + + + + | Result panel 40 | + + + + + +-------+ + + | Eosinophil | 2025-01-07 | | 1.7 | (missing) | (missing) | | NFr Bld Auto | 10:20:07 | [facility] | | | | + + + +-------+ + + + + | Result panel 41 | + + + + + +-------+ + + | Basophils | 2025-01-07 | | 1.3 | (missing) | (missing) | | NFr Bld Auto | 10:20:07 | [facility] | | | | + + + +-------+ + + + + | Result panel 42 | + + + + + +------+---------+ + | Glucose | 2025-01-07 | | 84 | mg/dL | (missing) | | Fernandol-Lynne | 10:20:07 | [facility] | | | | + + + +------+---------+ + + + | Result panel 43 | + + + + + +------+---------+ + | BUN | 2025-01-07 | | 21 | mg/dL | (missing) | | SerPl-mCnc | 10:20:07 | [facility] | | | | + + + +------+---------+ + + + | Result panel 44 | + + + + + +--------+ + + | MCH RBC Qn | 2025-01-07 | | 30.4 | (missing) | (missing) | | Auto | 10:20:07 | [facility] | | | | + + + +--------+ + + + + | Result panel 45 | + + + + + +--------+---------+ + | Creat | 2025-01-07 | | 0.89 | mg/dL | (missing) | | SerPl-mCnc | 10:20:07 | [facility] | | | | | | | - | | | | | | | [facility] | | | | + + + +--------+---------+ + + + | Result panel 46 | + + + + + +------+ + + | eGFRcr | 2025-01-07 | | 83 | (missing) | (missing) | | SerPlBld | 10:20:07 | [facility] | | | | | CKD-EPI 2020 | [facility] | | | | + + + +------+ + + + + | Result panel 47 | + + + + + +---------+ + + | BUN/Creat | 2025-01-07 | | 23.59 | (missing) | (missing) | | SerPl | 10:20:07 | [facility] | | | | + + + +---------+ + + + + | Result panel 48 | + + + + + +-------+ + + | Sodium | 2025-01-07 | | 139 | (missing) | (missing) | | SerPl-sCnc | 10:20:07 | [facility] | | | | + + + +-------+ + + + + | Result panel 49 | + + + + + +-------+ + + | Potassium | 2025-01-07 | | 3.9 | (missing) | (missing) | | SerPl-sCnc | 10:20:07 | [facility] | | | | + + + +-------+ + + + + | Result panel 50 | + + + + + +-------+ + + | Chloride | 2025-01-07 | | 105 | (missing) | (missing) | | SerPl-sCnc | 10:20:07 | [facility] | | | | + + + +-------+ + + + + | Result panel 51 | + + + + + +------+ + + | CO2 | 2025-01-07 | | 25 | (missing) | (missing) | | SerPl-[facility] | 10:20:07 | [facility] | | | | + + + +------+ + + + + | Result panel 52 | + + + + + +--------+ + + | Anion Gap | 2025-01-07 | | 12.9 | (missing) | (missing) | | SerPl | 10:20:07 | [facility] | | | | | Calculated.4 | [facility] I[facility]-sCnc | [facility] | | | | + + + +--------+ + + + + | Result panel 53 | + + + + + +-------+---------+ + | Calcium | 2025-01-07 | | 9.7 | mg/dL | (missing) | | SerPl-mCnc | 10:20:07 | [facility] | | | | + + + +-------+---------+ + + + | Result panel 54 | + + + + + +-------+ + + | Prot | 2025-01-07 | | 7.2 | (missing) | (missing) | | SerPl-mCnc | 10:20:07 | [facility] | | | | + + + +-------+ + + + + | Result panel 55 | + + + + + +--------+ + + | MCHC RBC | 2025-01-07 | | 34.5 | (missing) | (missing) | | Auto-EntMCnc | 10:20:07 | [facility] | | | | + + + +--------+ + + + + | Result panel 56 | + + + + + +-------+ + + | Albumin | 2025-01-07 | | 4.1 | (missing) | (missing) | | SerPl-mCnc | 10:20:07 | [facility] | | | | | | | - | | | | | | | [facility] | | | | + + + +-------+ + + + + | Result panel 57 | + + + + + +-------+ + + | Globulin | 2025-01-07 | | 3.1 | (missing) | (missing) | | Ser-mCnc | 10:20:07 | [facility] | | | | + + + +-------+ + + + + | Result panel 58 | + + + + + +--------+ + + | | 2025-01-07 | | 1.32 | (missing) | (missing) | | Albumin/Glob | 10:20:07 | [facility] | | | | | SerPl | [facility] | | | | + + + +--------+ + + + + | Result panel 59 | + + + + + +-------+---------+ + | Bilirub | 2025-01-07 | | 0.5 | mg/dL | (missing) | | SerPl-mCnc | 10:20:07 | [facility] | | | | + + + +-------+---------+ + + + | Result panel 60 | + + + + + +------+ + + | AST | 2025-01-07 | | 24 | (missing) | (missing) | | Ser[facility] | 10:20:07 | [facility] | | | | + + + +------+ + + + + | Result panel 61 | + + + + + +------+ + + | ALT | 2025-01-07 | | 23 | (missing) | (missing) | | SerPl-cCnc | 10:20:07 | [facility] | | | | + + + +------+ + + + + | Result panel 62 | + + + + + +------+ + + | ALP | 2025-01-07 | | 79 | (missing) | (missing) | | SerPl-cCnc | 10:20:07 | [facility] | | | | + + + +------+ + + + + | Result panel 63 | + + + + + +-------+ + + | Platelet # | 2025-01-07 | | 302 | (missing) | (missing) | | Bld Auto | 10:20:07 | [facility] | | | | + + + +-------+ + + + + | Result panel 64 | + + + + + +--------+ + + | Neutrophils | 2025-01-07 | | 60.5 | (missing) | (missing) | | NFr Bld | 10:20:07 | [facility] | | | | | Auto | [facility] | | | | + + + +--------+ + + + + | Result panel 65 | + + + + + +---------+ + + | Color CSF | 2025-01-07 | | CLEAR | (missing) | (missing) | | | 13:49:07 | [facility] | | | | + + + +---------+ + + + + | Result panel 66 | + + + + + +---------+ + + | Clarity CSF | 2025-01-07 | | CLEAR | (missing) | (missing) | | | 13:49:07 | [facility] | | | | + + + +---------+ + + + + | Result panel 67 | + + + + + +-----+ + + | Neutrophils | 2025-01-07 | | 0 | (missing) | (missing) | | # CSF | 13:49:07 | [facility] | | | | | Manual | [facility] | | | | + + + +-----+ + + + + | Result panel 68 | + + + + + +-----+ + + | RBC # CSF | 2025-01-07 | | 0 | (missing) | (missing) | | Manual | 13:49:07 | [facility] | | | | + + + +-----+ + + + + | Result panel 69 | + + + + + +------+---------+ + | Glucose | 2025-01-07 | | 52 | mg/dL | (missing) | | CSF-[facility] | 13:49:07 | [facility] | | | | + + + +------+---------+ + + + | Result panel 70 | + + + + + +------+---------+ + | Prot | 2025-01-07 | | 30 | mg/dL | (missing) | | CSF-[facility] | 13:49:07 | [facility] | | | | + + + +------+---------+ + + + | Result panel 71 | + + + + + +---------+ + + | Color CSF | 2025-01-07 | | CLEAR | (missing) | (missing) | | | 13:49:07 | [facility] | | | | + + + +---------+ + + + + | Result panel 72 | + + + + + +---------+ + + | Clarity CSF | 2025-01-07 | | CLEAR | (missing) | (missing) | | | 13:49:07 | [facility] | | | | + + + +---------+ + + + + | Result panel 73 | + + + + + +-----+ + + | Neutrophils | 2025-01-07 | | 0 | (missing) | (missing) | | # CSF | 13:49:07 | [facility] | | | [facility] | | | | + + + +-----+ + + + + | Result panel 74 | + + + + + +-----+ + + | RBC # CSF | 2025-01-07 | | 0 | (missing) | (missing) | | Manual | 13:49:07 | [facility] | | | | | | | - | | | | | | | [facility] | | | | + + + +-----+ + + + + | Result panel 75 | + + + + + +------+---------+ + | Glucose | 2025-01-07 | | 52 | mg/dL | (missing) | | CSF-nc | 13:49:07 | [facility] | | | | | | | - | | | | | | | [facility] | | | | + + + +------+---------+ + + + | Result panel 76 | + + + + + +------+---------+ + | Prot | 2025-01-07 | | 30 | mg/dL | (missing) | | [facility] | 13:49:07 | [facility] | | | | + + + +------+---------+ + Social History +--------+ + + | date | description | facility | +--------+ + + Vital Signs + + + +---------+ | date | measurement | value | units | + + + +---------+ | 2025-01-07 00:00 | BMI | 39.1 | kg/m2 | + + + +---------+ | 2025-01-07 00:00 | BP_diastolic | 91 | mmHg | + + + +---------+ | 2025-01-07 00:00 | BP_systolic | 133 | mmHg | + + + +---------+ | 2025-01-07 00:00 | heart_rate | 63 | /min | + + + +---------+ | 2025-01-07 00:00 | height_metric | 160.02 | cm | + + + +---------+ | 2025-01-07 00:00 | height_standard | 63 | in | + + + +---------+ | 2025-01-07 00:00 | o2_saturation | 100 | % | + + + +---------+ | 2025-01-07 00:00 | respiration_rate | 19 | /min | + + + +---------+ | 2025-01-07 00:00 | | 98.1 | F | | | temperature_standar | | | | | d | | | + + + +---------+ | 2025-01-07 00:00 | weight_metric | 100 | kg | + + + +---------+ | 2025-01-07 00:00 | weight_standard | 220.462 | lb | + + + +---------+ | 2025-01-09 00:00 | BMI | 37.1 | kg/m2 | + + + +---------+ | 2025-01-09 00:00 | BP_diastolic | 90 | mmHg | + + + +---------+ | 2025-01-09 00:00 | BP_systolic | 132 | mmHg | + + + +---------+ | 2025-01-09 00:00 | heart_rate | 71 | /min | + + + +---------+ | 2025-01-09 00:00 | height_metric | 160.02 | cm | + + + +---------+ | 2025-01-09 00:00 | height_standard | 63 | in | + + + +---------+ | 2025-01-09 00:00 | o2_saturation | 99 | % | + + + +---------+ | 2025-01-09 00:00 | respiration_rate | 17 | /min | + + + +---------+ | 2025-01-09 00:00 | | 98 | F | | | temperature_standar | | | | | d | | | + + + +---------+ | 2025-01-09 00:00 | weight_metric | 94.999 | kg | + + + +---------+ | 2025-01-09 00:00 | weight_standard | 209.437 | lb | + + + +---------+"
--- OUTSIDE RECORDS SUMMARY | 2025-03-09 12:05 | XMS ---
PreManage Notification: NORTH LORENZO Security Chemical Process Analyst Events No recent Security Events currently on file CRITERIA MET - Group Notification CARE PROVIDERS ELLA VALVERDE Family Medicine Current PHONE: Unknown Lenora Resendez Nurse Practitioner: Family [facility] BUTTON MAKER-C PHONE: Unknown Ciro has no Care Guidelines for this patient. Kavitha VISIT COUNT (12 MO.) [place] TOTAL 4 NOTE: Visits indicate total known visits. ED/UCC VISIT TRACKING (12 MO.) 03/09/2025 11:58 [facility] [place] TYPE: Emergency COMPLAINT: - LEG PAIN 01/09/2025 18:56 [facility] [place] TYPE: Emergency COMPLAINT: - HEADACHE DIAGNOSES: - Allergy status to narcotic agent - Allergy status to other antibiotic agents - Allergy to milk products - Benign intracranial hypertension - Gastro-esophageal reflux disease without esophagitis - Headache, unspecified - Insomnia, unspecified - Migraine, unspecified, not intractable, without status migrainosus - Other continuous churn buttermaker (current) drug therapy 01/07/2025 09:01 [facility] TYPE: Emergency COMPLAINT: - HEADACHE DIAGNOSES: - Allergy status to narcotic agent - Allergy status to penicillin - Allergy to milk products - Benign intracranial hypertension - Essential (primary) hypertension - Gastro-esophageal reflux disease without esophagitis - Headache, unspecified - jail (current) use of oral hypoglycemic drugs - Other longterm (current) drug therapy 11/04/2024 13:33 [facility] [place] TYPE: Emergency COMPLAINT: - BACK PAIN NON INJURY RELATED DIAGNOSES: - Dorsalgia, unspecified - Procedure and treatment not carried out due to patient leaving prior to being seen by health care provider INPATIENT VISIT TRACKING (12 MO.) No inpatient visits to display in this time frame [email or web address]
[2025-03-09] MEDS ORDERED: CYCLOBENZAPRINE10 MG PO (13:10)
[2025-03-09] MEDS ORDERED: HYDROCODONE/ACETA 5/325 TAB PO ONE (13:15)
[2025-03-09] MEDS ORDERED: LIDOCAINE HCL 4% 1 EACH PATCH TD ONE (13:15)
[2025-03-09] MEDS ORDERED: ACETAMINOPHEN 325 MG TAB PO ONE (13:15)
[2025-03-09 13:35] VITALS: BP 130/91
== END 2025-03-09 13:35 | disposition home or self-care (01) ==
LOC: ED 11:58
DX: M54.50 Low back pain, unspecified (principal); Z88.0 Allergy status to penicillin; Z88.5 Allergy status to narcotic agent; Z91.0110 Allergy to milk products, unspecified; Z79.84 Long term (current) use of oral hypoglycemic drugs; Z79.899 Other long term (current) drug therapy
CPT/HCPCS: 99283; A9270

== ENCOUNTER 2025-04-03 09:21 | Emergency (ER) | payer OTHER ==
[~2025-04-03] VITALS: Ht 160 cm; Wt 88.6 kg
--- OUTSIDE RECORDS SUMMARY | ~2025-04-03 | XMS | Continuity of Care Document ---
Demographics + + + | Address | [facility] [address] | | | [place] [address] | + + + | Preferred Language | Unknown | + + + | Marital Status | | + + + | Mandaeism Affiliation | Unknown | + + + | Race | White | + + + | Ethnic Group | Not or | + + + Author + + + | Author | [facility] | + + + | Organization | [facility] | + + + | Address | [address] | | | [place] [address] | + + + | Phone | | + + + Care Team Providers + + + + | Care Code Clerk Name | Role | Phone | + [...] + + + + + + | 2025-03-09 | Oxycodone | [facility] - | (no reaction) | Moderate | | 00:00 | | [...] + + + + + + | 2025-03-09 | Oxycodone | [facility] - | (no reaction) | Moderate | | 00:00 | | [...] + + + + + + | 2025-03-09 | Oxycodone | [facility] - | (no reaction) | Moderate | | 00:00 | | [facility] | | | + + + + + + Encounters No information. Functional Status No information. Immunizations No information. Medications + + + + | date | description | facility | + + + + | (no date) | COLESTIPOL HCL | [facility] | | | | [facility] | + + + + | (no date) | ONDANSETRON | [facility] | | | | [facility] | + + + + | (no date) | NAPROXEN SODIUM | [facility] | | | | [facility] | + + + + | (no date) | ALPRAZOLAM | [facility] | | | | [facility] | + + + + | (no date) | ESTRADIOL | [facility] | | | | [facility] | + + + + | (no date) | Cholecalciferol (Vitamin | [facility] | | | D3) | [facility] | + + + + | (no date) | Tirzepatide | [facility] | | | | [facility] | + + + + | (no date) | Erythromycin Base | [facility] | | | | [facility] | + + + + | (no date) | Lactase | [facility] | | | | [facility] | + + + + | 2025-01-07 00:00 | ONDANSETRON | [facility] | | | | [facility] | + + + + | (no date) | LISINOPRIL | [facility] | | | | [facility] | + + + + | (no date) | PANTOPRAZOLE SODIUM | [facility] | | | | [facility] | + + + + | 2025-01-07 00:00 | ACETAZOLAMIDE | [facility] | | | | [facility] | + + + + | 2025-03-09 00:00 | CYCLOBENZAPRINE HCL | [facility] | | | | [facility] | + + + + | ( date) | TRAZODONE HCL | [facility] | | | | [facility] | + + + + | 2025-01-07 00:00 | HYDROCODONE | [facility] | | | BIT/ACETAMINOPHEN | [facility] | + + + + | 2025-03-09 00:00 | HYDROCODONE | [facility] | | | BIT/ACETAMINOPHEN | [facility] | + + + + | (no date) | METFORMIN HCL | [facility] | | | | [facility] | + + + + | (no date) | OXYBUTYNIN CHLORIDE | [facility] | | | | [facility] | + + + + | (no date) | hydrOXYzine HCL | [facility] | | | | [facility] | + + + + Problems + + + + | date | description | facility | + + + + | 2025-01-07 00:00 | Intracranial hypertension | [facility] | | | | [facility] | + + + + | 2025-01-09 00:00 | Migraine headache | [facility] | | | | [facility] | + + + + | 2025-01-09 00:00 | Benign intracranial | [facility] | | | hypertension | [facility] | + + + + | 2025-03-09 00:00 | Low back pain | [facility] | | | | [facility] | + + + + Procedures [...] 21 | mg/dL | (missing) | | [facility] | 10:20:07 | [facility] | | | [...] 13.6 | (missing) | (missing) | | Bld[facility] | 10:20:07 | [facility] | | | [...] 79 | (missing) | (missing) | | Ser[facility] | 10:20:07 | [facility] | | | [...] 84 | mg/dL | (missing) | | Roselyn | 10:20:07 | [facility] | | | [...] 21 | mg/dL | (missing) | | SerPabdirizak-[facility] | 10:20:07 | [facility] | | | [...] 9.7 | mg/dL | (missing) | | SerPl-[facility] | 10:20:07 | [facility] | | | [...] 4.1 | (missing) | (missing) | | SerPl-[facility] | 10:20:07 | [facility] | | | [...] 79 | (missing) | (missing) | | SerPl-[facility] | 10:20:07 | [facility] | | | [...] 52 | mg/dL | (missing) | | CSF-[facility] | 13:49:07 | [facility] | | | [...] 30 | mg/dL | (missing) | | CSF-[facility] | 13:49:07 | [facility] | | | [...] | (missing) | | | 13:49:07 | [facility] | | | | | | | [...] 52 | mg/dL | (missing) | | CSF-[facility] [...] 209.437 | lb | + + + +---------+ | 2025-03-09 00:00 | BMI | 36.8 | kg/m2 | + + + +---------+ | 2025-03-09 00:00 | BP_diastolic | 91 | mmHg | + + + +---------+ | 2025-03-09 00:00 | BP_systolic | 130 | mmHg | + + + +---------+ | 2025-03-09 00:00 | heart_rate | 71 | /min | + + + +---------+ | 2025-03-09 00:00 | height_metric | 160.02 | cm | + + + +---------+ | 2025-03-09 00:00 | height_standard | 63 | in | + + + +---------+ | 2025-03-09 00:00 | o2_saturation | 97 | % | + + + +---------+ | 2025-03-09 00:00 | respiration_rate | 18 | /min | + + + +---------+ | 2025-03-09 00:00 | | 97.8 | F | | | temperature_standar | | | | | d | | | + + + +---------+ | 2025-03-09 00:00 | weight_metric | 94.2 | kg | + + + +---------+ | 2025-03-09 00:00 | weight_standard | 207.675 | lb | + + + +---------+"
[~2025-04-03 09:21] MED LIST changes: +CYCLOBENZAPRINE10 MG PO
--- OUTSIDE RECORDS SUMMARY | 2025-04-03 09:22 | XMS ---
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 Kavitha VISIT COUNT (12 MO.) [address] [place] [address] TOTAL 5 NOTE: Visits indicate total known visits. 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 - Low back pain, unspecified - Other retirement (current) drug therapy 01/09/2025 18:56 [facility] TYPE: Emergency COMPLAINT: - HEADACHE DIAGNOSES: - Allergy status to narcotic agent - Allergy status to other antibiotic agents - Allergy to milk products - Benign intracranial hypertension - Gastro-esophageal reflux disease without esophagitis - Headache, unspecified - Insomnia, unspecified - Migraine, unspecified, not intractable, without status migrainosus - Other retirement (current) drug therapy 01/07/2025 09:01 [facility] [place] TYPE: Emergency COMPLAINT: - HEADACHE DIAGNOSES: - Allergy status to narcotic agent - Allergy status to penicillin - Allergy to milk products - Benign intracranial hypertension - Essential (primary) hypertension - Gastro-esophageal reflux disease without esophagitis - Headache, unspecified - 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
[2025-04-03] MEDS ORDERED: SODIUM CHLORIDE 0.9% 1,000 ML IV ONE (09:45)
[2025-04-03 10:04] LABS: BASOPHILS 0.6 % (0.1-1.2); EOSINOPHILS 0.5 % (0.7-5.8); LYMPHOCYTES 13.8 % (19.3-51.7); MCH 30.8 PG (25.6-32.2); MCHC 35.1 g/dL (32.2-35.5); MCV 87.7 fL (79.4-94.8); MONOCYTES 5.7 % (4.7-12.5); NEUTROPHILS 79.3 % (34.0-71.1); RBC 4.87 M/uL (3.93-5.22)
[2025-04-03 10:26] LABS: ALT (SGPT) 32.0 U/L (14-59); AST (SGOT) 24.0 U/L (15-37); GLOMERULAR FILTRATION RATE,EST 103.0 mL/min (>60); PROTEIN, TOTAL 7.9 g/dL (6.4-8.2); UREA NITROGEN 20.0 mg/dL (7-18)
[2025-04-03 10:37] LABS: BLOOD/HGB, URINE NEGATIVE (Negative); KETONE, URINE SMALL (Negative); LEUK ESTERASE, URINE NEGATIVE (negative); NITRITE, URINE NEGATIVE (negative)
[2025-04-03] MEDS ORDERED: ONDANSETRON ODT8 MG PO (10:55)
[2025-04-03] MEDS ORDERED: ESTRADIOL0.5 MG PO (11:09)
[2025-04-03] MEDS ORDERED: CYCLOBENZAPRINE HCL 10 MG TAB PO ONE (11:15)
[2025-04-03 11:48] VITALS: BP 168/101
== END 2025-04-03 11:51 | disposition home or self-care (01) ==
LOC: ED 09:21
PROVIDERS: Emergency Medicine
DX: R63.0 Anorexia (principal); R11.2 Nausea with vomiting, unspecified; R10.9 Unspecified abdominal pain; T38.3X5A Adverse effect of insulin and oral hypoglycemic [antidiabetic] drugs, initial encounter; K21.9 Gastro-esophageal reflux disease without esophagitis; Z88.1 Allergy status to other antibiotic agents; Z91.0110 Allergy to milk products, unspecified
CPT/HCPCS: 36415; 80053; 81003; 83690; 85025; 96361; 96374; 96376; 99284-25; J2405; J7030